=== PATIENT | male | born 1940 | race Caucasian/White ===

== ENCOUNTER 2017-04-27 09:51 | Emergency (ER) | payer MEDICARE, OTHER ==
--- NOTE | 2017-04-27 11:17 | RAD ---
PA AND LATERAL OF THE CHEST: INDICATION: Followup nasal congestion. COMPARISON: None. FINDINGS: Lungs are clear. Cardiomediastinal silhouette is within normal limits. No acute osseous abnormality is evident. IMPRESSION: No acute cardiopulmonary abnormality. POS: [facility]
== END 2017-04-27 10:37 | disposition home or self-care (01) ==
LOC: SCSER 09:51
DX: J40 Bronchitis, not specified as acute or chronic (principal); J01.90 Acute sinusitis, unspecified; E03.9 Hypothyroidism, unspecified; Z79.899 Other long term (current) drug therapy
CPT/HCPCS: 71046

== ENCOUNTER 2017-05-04 11:16 | Emergency (ER) | payer MEDICARE, OTHER ==
--- NOTE | 2017-05-04 12:20 | RAD ---
2 VIEWS CHEST: Date: 05/04/17 PROVIDED CLINICAL HISTORY: Cough. FINDINGS: Comparison with 04/27/17. Cardiac and mediastinal silhouette is within normal limits. Lungs appear clear. No pleural fluid or p neumothorax apparent. IMPRESSION: No evidence for an acute cardiopulmonary process. POS: [facility]
[2017-05-04] MEDS ORDERED: cefTRIAXone\\ROCEPHIN 1 GM VIAL IM SCH (12:30)
[2017-05-04] MEDS ORDERED: Dexamethasone 10 MG/ML VIAL IM SCH (12:30)
[2017-05-04] MEDS ORDERED: Lidocaine 1% PF 5 ML VIAL ONE (12:50)
== END 2017-05-04 13:27 | disposition home or self-care (01) ==
LOC: ERS 11:16
DX: J01.90 Acute sinusitis, unspecified (principal)
CPT/HCPCS: 71046; 96372; J0696; J1100; J2001

== ENCOUNTER 2020-03-01 13:45 | Inpatient (IN) | payer MEDICARE, OTHER ==
[2020-03-01 14:16] LABS: #Eosinphils 0.2 thou/uL (0.0-0.7); #Lymphocytes 1.3 thou/uL (1.20-3.40); #Monocytes 0.4 thou/uL (0.11-0.59); #Neutrophils 3.2 thou/uL (1.40-6.50); %Eosinophils 3.2 % (0.0-10.0); %Lymphocytes 25.8 % (21.0-51.0); %Monocytes 7.7 % (0.0-10.0); %Neutrophils 62.4 % (42.0-75.0); Hemoglobin 13.4 g/dL (14.0-18.0); Mean Corpuscular HGB CONC 32.7 g/dL (32.0-36.0); Mean Corpuscular Hemoglobin 32.7 pg (27.0-31.0); Mean Corpuscular Volume 99.9 fL (78.0-98.0); Mean Platelet Volume 9.8 fL (7.4-10.4); Platelet Count 150 thou/uL (130-400); RBC Distribution Width 11.6 % (11.5-14.5); White Blood Cell (WBC) Count 5.1 thou/uL (4.8-10.8)
--- NOTE | 2020-03-01 14:33 | RAD ---
EXAM: CHEST ONE VIEW HISTORY: Intermittent tightening and chest. Chest pain. COMPARISON: 05/04/2017. FINDINGS: The cardiac silhouette and pulmonary vasculature are within normal limits. Minimal linear scar versus atelectasis is present at the left lung base. Lungs are otherwise clear. Degenerative changes are again seen in the spine. IMPRESSION: No acute cardiopulmonary process.
[2020-03-01 14:35] LABS: ALT (SGPT) 23 U/L (8-55); AST (SGOT) 25 U/L (5-34); Alkaline Phosphatase 59 U/L (40-110); Anion Gap 11 mmol/L (10-20); BUN (Urea Nitrogen) 19 mg/dL (8.4-25.7); Bilirubin, Total 0.6 mg/dL (0.2-1.2); Calc. Creatinine Clearance 0 mL/min (70-130); Calcium 8.7 mg/dL (7.8-10.44); Carbon Dioxide 27 mmol/L (23-31); Chloride 106 mmol/L (98-107); Globulin 2.8 g/dL (2.4-3.5); Glucose 139 mg/dL (83-110); Potassium 3.8 mmol/L (3.5-5.1); Protein, Total 6.8 g/dL (5.8-8.1); Sodium 140 mmol/L (136-145)
[2020-03-01] MEDS ORDERED: Nitroglycerin 2% Ointment 1 INCH/1 GM Packet ONE (14:59)
[2020-03-01] MEDS ORDERED: Acetaminophen 325 MG TAB PO PRN (15:54)
[2020-03-01] MEDS ORDERED: Acetaminophen 650 MG Suppository PR PRN (15:54)
--- NOTE | 2020-03-01 16:10 | PDOC.HHP ---
Hospitalist HPI - History of Present Illness History of Present Illness: ADMISSION DATE: 03/01/2020 TIME OF ASSESSMENT: 1500 PRIMARY CARE PHYSICIAN: Dr. Christoph Dee CHIEF COMPLAINT: Chest pain HPI: This is a 79-year-old gentleman who presents to the emergency department as instructed by his golf ball inspector Dr. Stack due to increasing chest tightness that occurred earlier this morning. The patient was supposed to have a catheterization done tomorrow morning after having an abnormal stress test earlier this week on 02/28/2020, however given the increased chest discomfort he was recommended observation overnight prior to the procedure. At the moment he reports feeling better after having nitro paste applied in the emergency department. His states that he tends to have high tolerance for pain and does not usually state when he is in discomfort. He first began to have issues with chest tightness since the day after Jennifer prompting him to seek medical attention. He had felt lightheaded at that time as well and therefore had a heart monitor placed that demonstrated occasional episodes of tachycardia and PVCs, according to his . The tightness had eventually settled until he had the stress test which apparently triggered the discomfort. He states it tends to occur while he is resting and does not seem to be exacerbated by exertion. It is nonradiating and he is unable to rate the severity of his pain. ROS: He denies any associated nausea, vomiting, diaphoresis, or lightheadedness. He has not had any recent changes with his stools. Denies any urinary symptoms. All other systems are negative. ED COURSE: In the emergency department he underwent an EKG that demonstrated a normal sinus rhythm with a heart rate of 75. He did not have any ST changes or T wave abnormalities present. Chest x-ray was done showing no acute cardiopulmonary process. Laboratory studies demonstrated a negative troponin. He had a white cell count of 5.1, hemoglobin 13.4, hematocrit 41, platelets 150, neutrophils 62.4%. Sodium 140, potassium 3.8, BUN 19, creatinine 1.03, GFR 70. Glucose 139, LFTs normal. Patient apparently took 325 5 mg of aspirin at home and therefore did not receive any additional aspirin in the ED. PAST MEDICAL HISTORY: 1. CAD 2. Hypothyroidism 3. History of tobacco use PAST SURGICAL HISTORY: 1. Tonsillectomy SOCIAL HISTORY: Patient lives with his . He is fully independent at baseline. Drinks alcohol socially approximately 2 times a month. History of tobacco use but quit more than 10 years ago. FAMILY HISTORY: Noncontributory ALLERGIES: No known drug allergies CURRENT MEDICATIONS: 1. Levothyroxine 150 mcg p.o. daily - Exam General Appearance: NAD, awake alert General - other findings: VS: Temp 98.9, HR 88, BP 150/68, O2 sat 90% on room air, RR 17 Eye: PERRL, anicteric sclera ENT: normocephalic atraumatic, no oropharyngeal lesions, moist mucosa Neck: supple, symmetric, no lymphadenopathy Heart: RRR, no murmur, no gallops, no rubs, normal peripheral pulses Heart - other findings: no reproducible pain on exam/palpation Respiratory: CTAB, no wheezes, no rales, normal chest expansion Gastrointestinal: soft, non-tender, non-distended, normal bowel sounds, no gua rding, no rigidity Extremities: no cyanosis, no clubbing, no edema Skin: normal turgor, no lesions, no rashes Neurological: cranial nerve grossly intact, normal sensation to touch, no weakness Musculoskeletal: normal tone, normal strength, no muscle wasting Psychiatric: normal affect, normal behavior, A&O x 3 Hospitalist Results - Labs Result Diagrams: 03/01/20 14:04 03/01/20 14:04 Lab results: WBC 5.1 thou/uL (4.8-10.8) 03/01/20 14:04 Hgb 13.4 g/dL (14.0-18.0) L 03/01/20 14:04 Hct 41.0 % (42.0-52.0) L 03/01/20 14:04 MCV 99.9 fL (78.0-98.0) H 03/01/20 14:04 Plt Count 150 thou/uL (130-400) 03/01/20 14:04 Neutrophils % 62.4 % (42.0-75.0) 03/01/20 14:04 Sodium 140 mmol/L (136-145) 03/01/20 14:04 Potassium 3.8 mmol/L (3.5-5.1) 03/01/20 14:04 Chloride 106 mmol/L (98-107) 03/01/20 14:04 Carbon Dioxide 27 mmol/L (23-31) 03/01/20 14:04 BUN 19 mg/dL (8.4-25.7) 03/01/20 14:04 Creatinine 1.03 mg/dL (0.7-1.3) 03/01/20 14:04 Glucose 139 mg/dL (83-110) H 03/01/20 14:04 Calcium 8.7 mg/dL (7.8-10.44) 03/01/20 14:04 Total Bilirubin 0.6 mg/dL (0.2-1.2) 03/01/20 14:04 AST 25 U/L (5-34) 03/01/20 14:04 ALT 23 U/L (8-55) 03/01/20 14:04 Alkaline Phosphatase 59 U/L (40-110) 03/01/20 14:04 Troponin I Less than 0.010 ng/mL (< 0.028) 03/01/20 14:04 Serum Total Protein 6.8 g/dL (5.8-8.1) 03/01/20 14:04 Albumin 4.0 g/dL (3.4-4.8) 03/01/20 14:04 - Radiology Interpretation Chest x-ray Status: report reviewed by me Hospitalist H&P A/P - Problem (1) Chest pain Code(s): R07.9 - CHEST PAIN, UNSPECIFIED Status: Acute (2) Abnormal stress test Status: Acute (3) Hypothyroidism Code(s): E03.9 - HYPOTHYROIDISM, UNSPECIFIED Status: Chronic (4) Personal history of tobacco use Code(s): Z87.891 - PERSONAL HISTORY OF NICOTINE DEPENDENCE Status: Chronic - Plan Plan: Continue cardiac monitoring Cardiology consult to Dr. Holbrook Trend troponins Keep NPO until 2nd trop done if normal may resume heart healthy diet Then resume NPO status at midnight given plans for cath in the AM Monitor BP Check TSH and Mg+ GI Prophylaxis with Famotidine DVT Prophylaxis: Mechanical SCDs CODE STATUS FULL COVID testing: admission screening Case discussed with attending who agrees with plan of care.
[2020-03-01] MEDS: Famotidine 20 MG TAB PO SCH (23:04)
[2020-03-01] MEDS: Nitroglycerin 2% Ointment 1 INCH/1 GM Packet TOP SCH (23:07)
[2020-03-02 01:39] LABS: SARS-CoV-2 MS2 Positive; SARS-CoV-2 N Gene Negative; SARS-CoV-2 S Gene Negative; SARS-CoV-2 by NAA Not Detected (NotDetected); SARS-CoV-2 orf1ab Negative
[2020-03-02 04:31] LABS: #Eosinphils 0.3 thou/uL (0.0-0.7); #Lymphocytes 1.4 thou/uL (1.20-3.40); #Monocytes 0.5 thou/uL (0.11-0.59); #Neutrophils 2.4 thou/uL (1.40-6.50); %Basophils 0.8 % (0.0-1.0); %Eosinophils 6.5 % (0.0-10.0); %Lymphocytes 30.9 % (21.0-51.0); %Monocytes 10.1 % (0.0-10.0); %Neutrophils 51.7 % (42.0-75.0); Hemoglobin 12.5 g/dL (14.0-18.0); Mean Corpuscular HGB CONC 33.3 g/dL (32.0-36.0); Mean Corpuscular Hemoglobin 32.9 pg (27.0-31.0); Mean Corpuscular Volume 98.8 fL (78.0-98.0); Mean Platelet Volume 10.1 fL (7.4-10.4); Platelet Count 143 thou/uL (130-400); RBC Distribution Width 11.7 % (11.5-14.5); Red Blood Cell (RBC) Count 3.81 mill/uL (4.70-6.10); White Blood Cell (WBC) Count 4.6 thou/uL (4.8-10.8)
[2020-03-02 04:54] LABS: Anion Gap 13 mmol/L (10-20); BUN (Urea Nitrogen) 21 mg/dL (8.4-25.7); Calc. Creatinine Clearance 68 mL/min (70-130); Calcium 8.3 mg/dL (7.8-10.44); Carbon Dioxide 24 mmol/L (23-31); Cardiac Risk 3.8 (Less than 4.5); Chloride 107 mmol/L (98-107); Cholesterol 241 mg/dl (< 200 Desired); Glucose 101 mg/dL (83-110); HDL Cholesterol 63 mg/dL (>60 Neg Risk); LDL Cholesterol, Calculated 170 mg/dL; Potassium 4.1 mmol/L (3.5-5.1); Sodium 140 mmol/L (136-145); Triglycerides 42 mg/dL (Less than 150)
[2020-03-02] MEDS: Nitroglycerin 2% Ointment 1 INCH/1 GM Packet TOP SCH ×3 (06:18→22:59)
[2020-03-02] MEDS ORDERED: Aspirin 325 mg Enteric Coated Tablet PO SCH (09:00)
[2020-03-02] MEDS: Famotidine 20 MG TAB PO SCH ×2 (09:00→22:59)
--- NOTE | 2020-03-02 10:21 | PDOC.HOSPP ---
- Subjective Encounter Date: 03/02/20 Encounter Time: 10:20 Subjective: Patient reports minimal tightness in his chest, the nitro paste has just been reapplied. States he felt good overnight and slept well. Noted significant relief since starting nitro paste. Denies any lightheadedness, dizziness or headaches. Resting comfortably at present. - Objective Vital Signs & Weight: Vital Signs (12 hours) Temp Pulse Resp BP Pulse Ox 03/02/20 07:50 98.4 F 58 L 16 176/83 H 99 03/02/20 05:30 98.6 F 63 18 143/80 H 97 Weight Weight 179 lb I&O: 03/01/20 03/02/20 03/03/20 06:59 06:59 06:59 Intake Total 350 Output Total 600 Balance -250 Result Diagrams: 03/02/20 04:08 03/02/20 04:08 Hospitalist ROS - Review of Systems Constitutional: denies: fever, chills, sweats, weakness, malaise, other Respiratory: denies: cough, dry, shortness of breath, hemoptysis, SOB with excertion, pleuritic pain, sputum, wheezing, other Cardiovascular: reports: other (chest tightness has improved) Gastrointestinal: denies: nausea, vomiting, abdominal pain, diarrhea, co nstipation, melena, hematochezia, other Genitourinary: denies: dysuria, frequency, incontinence, hematuria, retention, other Musculoskeletal: denies: neck pain, shoulder pain, arm pain, back pain, hand pain, leg pain, foot pain, other Skin: denies: rash, lesions, randall, bruising, other Neurological: denies: weakness, numbness, incoordination, change in speech, confusion, seizures, other - Medication Medications: Active Medications Generic Name Dose Route Start Last Admin Trade Name Freq PRN Reason Stop Dose Admin Famotidine 20 mg 03/01/20 21:00 03/02/20 09:00 Famotidine 20 Mg Tab PO 20 mg BID GARRETT Administration Nitroglycerin 0.5 inch 03/01/20 22:00 03/02/20 06:18 Nitroglycerin 2% Ointment 1 Inch/1 Gm Packet TOP 0.5 inch Q8HR GARRETT Administration - Exam General Appearance: NAD, awake alert Eye: PERRL, anicteric sclera ENT: normocephalic atraumatic, no oropharyngeal lesions, moist mucosa Neck: supple, no lymphadenopathy Heart: RRR, no murmur, no gallops, no rubs, normal peripheral pulses Respiratory: CTAB, no wheezes, no rales, no ronchi, normal chest expansion Gastrointestinal: soft, non-tender, non-distended, normal bowel sounds Extremities: no edema Skin: normal turgor, no lesions, no rashes Neurological: cranial nerve grossly intact, normal sensation to touch, no weakness Musculoskeletal: normal tone, normal strength, no muscle wasting Psychiatric: normal affect, normal behavior, A&O x 3 Hosp A/P (1) Chest pain Code(s): R07.9 - CHEST PAIN, UNSPECIFIED Status: Acute (2) Abnormal stress test Status: Acute (3) Hypothyroidism Code(s): E03.9 - HYPOTHYROIDISM, UNSPECIFIED Status: Chronic (4) Personal history of tobacco use Code(s): Z87.891 - PERSONAL HISTORY OF NICOTINE DEPENDENCE Status: Chronic - Plan CP has improved with nitro paste Continue cardiac monitoring NPO with plans to have catheterization done this AM by Dr. Holbrook [facility] restarted DVT Prophylaxis: Mechanical SCDs GI prophylaxis: Famotidine Disposition as per Cardiology team
[2020-03-02] MEDS ORDERED: Midazolam HCl 2 mg/2 ml Vial ONE (11:46)
[2020-03-02] MEDS ORDERED: Fentanyl 100 MCG/2 ML VIAL ONE (11:48)
[2020-03-02] MEDS ORDERED: hydrALAZINE 20 MG/ML VIAL ONE (12:20)
--- NOTE | 2020-03-02 12:44 | CON ---
DATE OF CONSULTATION: 03/02/2020 REASON FOR CONSULTATION: Unstable angina. HISTORY OF PRESENT ILLNESS: Mr. Gaytan is a pleasant 79-year-old white gentleman, who comes to the hospital for angina. He saw me about 2 weeks ago for complaints of chest pain with exertion. He underwent testing including an echo and a stress. The stress showed a large inferior reversible defect and a smaller anterior reversible defect, so he was getting ready to be scheduled for an outpatient heart catheterization. However, on our tele-visit at that time, he voiced that he had been having chest pain pretty much since he had his stress test and he had ongoing chest pain on my evaluation at that time, so the recommendation was for him to go to the ER as he was probably having unstable angina. He presented yesterday with chest discomfort about a 4/10. He continues to have the chest tightness. PAST MEDICAL HISTORY: 1. Hypothyroidism. 2. Tobacco use. SURGICAL HISTORY: Tonsillectomy. SOCIAL HISTORY: Lives with the . Drinks about twice a month, socially only. Quit tobacco about 10 years ago. FAMILY HISTORY: Noncontributory. ALLERGIES: NO KNOWN DRUG ALLERGIES. OUTPATIENT MEDICATIONS: Levothyroxine 150 mcg a day. REVIEW OF SYSTEMS: A 12-point review of systems was done and was found to be negative other than stated in the history of present illness. PHYSICAL EXAMINATION: VITAL SIGNS: Temperature 98.4, pulse 58, respiratory rate 16, sat 99% on room air, blood pressure 176/83, but has been in the 130s. HEENT: Normocephalic atraumatic. NECK: Supple. LUNGS: Clear. CARDIOVASCULAR: S1 and S2. No S3 or S4. No murmurs. ABDOMEN: Soft. Positive bowel sounds. EXTREMITIES: No edema. SKIN: Warm and dry. LABORATORY DATA: Laboratory work was reviewed. CBC, CMP was reviewed. COVID PCR was negative. Chest x-ray was reviewed. ASSESSMENT AND PLAN: 1. Unstable angina. 2. Hypothyroidism. He has ongoing chest pain with ischemia on MPI. Plan on doing heart catheterization. We spoke at length of the risks and benefits of the procedure. Risks included, but not limited to stroke, [place], , bleeding, need for blood transfusion, limb loss, organ loss. He understands verbalized understanding of this and agrees to proceed. Drug-eluting stents if needed. Further recommendations per results of coronary angiogram. Job ID: [id number]
[2020-03-02] MEDS ORDERED: Sodium Chloride 0.9% 500 ML IVPB SCH (14:30)
--- NOTE | 2020-03-02 21:57 | CON ---
DATE OF CONSULTATION: HISTORY OF PRESENT ILLNESS: This is a 79-year-old gentleman followed by Dr. Christoph Dee primarily for hypercholesterolemia and hypothyroidism. He experienced some chest pressure on [place] and was seen by Dr. Holbrook. I believe he had an abnormal stress test and then experienced a more chest pressure this morning, which prompted admission to the hospital. Cardiac enzymes were negative and resting EKG was okay. He underwent cardiac catheterization, showing an 80% to 90% mid right coronary stenosis along 70% proximal PDA stenosis, about a 40% to 50% stenosis of an OM1 and about a 70% stenosis of LAD just proximal to a 2nd diagonal with rather diffuse calcific disease more proximally, but noncritical. Left ventricular systolic function is normal. PAST MEDICAL HISTORY: Includes elevated cholesterol level, treated with diet, daily took statins and then exhibited some cognitive changes such that these were stopped and then he returned to normal. He has hypothyroidism. He has no hypertension. He has not smoked in over 30 years. HOME MEDICATIONS: Included levothyroxine 25 mcg daily and he has had the addition of aspirin. SOCIAL HISTORY: He is an accountant cost and continues to work. He is , accompanied by his . REVIEW OF SYSTEMS: He has urinary frequency with nocturia x3 and decreased stream. He has no constipation or diarrhea. He has had no symptoms to suggest a TIA or stroke. He has no shortness of breath and in fact does 100 flights of stairs 3 times a week until his current issues came up. He has no claudication symptoms. PHYSICAL EXAMINATION: GENERAL: On examination, he is alert and cooperative gentleman, looking younger than his stated age. VITAL SIGNS: Height 5 feet 8 inches, 179 pounds. NECK: No carotid bruits. LUNGS: Clear to auscultation. CARDIAC: Regular rate and rhythm. No murmurs. ABDOMEN: Soft, mildly obese, nontender. No masses. EXTREMITIES: He has palpable femoral and pedal pulses bilaterally. PLAN: At this time is for bypass of his LAD, main right PDA, and possibly obtuse marginal and informed consent has been obtained. Job ID: [id number]
[2020-03-03] MEDS ORDERED: Communication Order-Pharmacy FS SCH (00:01)
[2020-03-03] MEDS: Nitroglycerin 2% Ointment 1 INCH/1 GM Packet TOP SCH (04:47)
[2020-03-03] MEDS ORDERED: Albumin 5% 500 ML ONE (06:35)
[2020-03-03] MEDS ORDERED: Fentanyl 250 MCG/5 ML VIAL ONE (06:41)
[2020-03-03] MEDS ORDERED: Midazolam HCl 5 mg/5 ml Vial ONE (06:41)
[2020-03-03] MEDS ORDERED: Dexmedetomidine 200 MCG/2 ML VIAL ONE ×2 (06:42→07:59)
[2020-03-03] MEDS ORDERED: Heparin 10,000 UNITS/1 ML VIAL 30,000 UNITS in Sodium Chloride 0.9% 1,000 ML FS SCH (07:00)
[2020-03-03] MEDS ORDERED: Ondansetron ODT 4 MG TAB ONE (07:09)
[2020-03-03] MEDS ORDERED: Midazolam HCl 2 mg/2 ml Vial ONE (07:09)
[2020-03-03] MEDS ORDERED: Nitroglycerin 50 MG/250 ML BOT 0 ML ONE (08:01)
[2020-03-03] MEDS ORDERED: Levothyroxine Sodium 25 MCG TAB PO SCH (08:30)
[2020-03-03] MEDS ORDERED: Lidocaine 1% PF 5 ML VIAL ONE (09:59)
[2020-03-03] MEDS ORDERED: Protamine Sulfate 250 MG/25 ML VIAL ONE (09:59)
[2020-03-03] MEDS ORDERED: Sodium Bicarb 50 MEQ/50 ML Abboject 8.4% SYRINGE ONE (09:59)
[2020-03-03] MEDS ORDERED: PROPOFOL 200 MG/20 ML VIAL ONE (09:59)
[2020-03-03] MEDS ORDERED: Dexamethasone 20 MG/5 ML VIAL ONE (09:59)
[2020-03-03] MEDS ORDERED: Vecuronium 10 MG VIAL ONE (09:59)
[2020-03-03] MEDS ORDERED: Papaverine 60 MG/2 ML VIAL ONE (09:59)
[2020-03-03] MEDS ORDERED: Heparin 5,000 UNITS/ML VIAL ONE (09:59)
[2020-03-03] MEDS ORDERED: Mannitol 12.5 GM/50 ML ONE (09:59)
[2020-03-03] MEDS ORDERED: Thrombin 5000 UNITS/5 ML VIAL ONE (09:59)
[2020-03-03] MEDS ORDERED: Calcium Chloride 1 GM/10 ML Abboject SYRINGE ONE (09:59)
[2020-03-03] MEDS ORDERED: Magnesium Sulfate 1 GM/2 ML VIAL ONE (09:59)
[2020-03-03] MEDS ORDERED: Norepinephrine 4 MG/4 ML VIAL ONE (09:59)
[2020-03-03] MEDS ORDERED: Glycopyrrolate 0.2 MG/ML 5 ML SYRINGE ONE (09:59)
[2020-03-03] MEDS ORDERED: Potassium Chloride 60 MEQ/30 ML VIAL ONE (09:59)
[2020-03-03] MEDS ORDERED: Heparin 30,000 units/30 ml VIAL ONE (09:59)
[2020-03-03] MEDS ORDERED: Nitroglycerin 50 MG/250 ML BOT ONE (09:59)
[2020-03-03] MEDS ORDERED: Lidocaine 2% PF 100 mg/5 ml Syringe ONE (09:59)
[2020-03-03] MEDS ORDERED: Cardioplegic Soln 1,000 ML BAG ONE (09:59)
[2020-03-03] MEDS ORDERED: Aminocaproic Acid 5 GM/20 ML VIAL ONE (09:59)
[2020-03-03] MEDS ORDERED: Bisacodyl 5 MG TAB PO PRN (10:49)
[2020-03-03] MEDS ORDERED: Guaifenesin DM 100-10/5 ML UDCUP PO PRN (10:49)
[2020-03-03] MEDS ORDERED: Norepinephrine 8 MG/0.9% NS 250 ML IVPB PRN (10:49)
[2020-03-03] MEDS ORDERED: Mag-Al 1200 mg/1200 mg/30 ML UDCUP PO PRN (10:49)
[2020-03-03] MEDS ORDERED: Potassium Chloride 20 MEQ/100 ML PREMIX BAG IVPB PRN (10:49)
[2020-03-03] MEDS ORDERED: Post-Op Insulin Drip Protocol IVPB ONE (10:49)
[2020-03-03] MEDS ORDERED: Fentanyl 100 MCG/2 ML VIAL SLOW IVP PRN (10:49)
[2020-03-03] MEDS ORDERED: niCARdipine 25 MG in Sodium Chloride 0.9% 250 ML 250 ML IVPB PRN (10:49)
[2020-03-03] MEDS ORDERED: Ondansetron PF 4 MG/2 ML Vial IVP PRN (10:49)
[2020-03-03] MEDS ORDERED: Nitroglycerin 50 MG/250 ML BOT 250 ML IVPB PRN (10:49)
[2020-03-03] MEDS ORDERED: Morphine 2 MG/ML VIAL SLOW IVP PRN (10:49)
[2020-03-03] MEDS ORDERED: hydrALAZINE 20 MG/ML VIAL SLOW IVP PRN (10:49)
[2020-03-03] MEDS ORDERED: DOPamine 400 MG/D5W 250 ML 250 ML IVPB PRN (10:49)
[2020-03-03] MEDS ORDERED: Hetastarch 6% 500 ML 500 ML IVPB PRN (10:49)
[2020-03-03] MEDS ORDERED: Promethazine HCl 25 MG/ML VIAL IM PRN (10:49)
[2020-03-03] MEDS ORDERED: Magnesium 2 GM/50 ML 2 GM in Premix Bag 1 BAG IVPB SCH (10:49)
[2020-03-03] MEDS ORDERED: HYDROcodone/Acetaminophen 5/325 mg Tablet PO PRN (10:49)
[2020-03-03] MEDS ORDERED: Bisacodyl 10 MG SUPP PR PRN (10:49)
--- NOTE | 2020-03-03 11:25 | RAD ---
RADIOGRAPH CHEST 1 VIEW: DATE: 03/03/2020 TIME: 11:07 AM HISTORY: 79-year-old male status post open heart surgery COMPARISON: 03/01/2020 FINDINGS: New sternotomy wires. New midline mediastinal drainage tube. New right-sided central venous catheter with distal tip at lower portion of SVC. Left basilar pleural drainage catheter. Left lower lobe mild to moderate atelectasis and probable small left pleural effusion, partially out side of the [id number]. No pulmonary edema or pneumothorax. IMPRESSION: Status post open heart surgery with catheters, and left lower lobe atelectasis
[2020-03-03 11:28] LABS: INR-International Normal Ratio 1.3; PTT 29.2 sec (22.9-36.1); Prothrombin Time 16.3 sec (12.0-14.7)
--- NOTE | 2020-03-03 11:33 | OP ---
DATE OF PROCEDURE: 03/02/2020 PREOPERATIVE DIAGNOSIS: Coronary artery disease. PROCEDURE PERFORMED: Coronary artery bypass graft x3 with sequential vein graft to the distal right coronary artery and to the mid PDA, ERNANDEZ to an LAD. LAD measured 1.5 to 2 mm, the right coronary artery 2 mm and diseased, and the PDA 1.5 and free of disease. STONE FABRICATOR: Dr. Dee. TRANSFUSION: None. DESCRIPTION OF PROCEDURE: After adequate anesthesia had been obtained, endovascular vein harvest of the left greater saphenous vein was performed by Dr. Dee while I performed median sternotomy, harvesting the left internal mammary artery. The patient was heparinized, mammary divided distally and passed posterior to the thymus gland. It was treated with intraluminal papaverine. The aorta was long and somewhat enlarged and was cannulated with the right atrial appendage. Cardiopulmonary bypass was begun. The vessels were inspected for grafting. The aorta was cross-clamped, and after a liter of cold blood cardioplegia, the PDA was opened and the end-to-side anastomosis completed and then the distal right coronary artery opened and [id number] anastomosis with the same vein graft was completed. ERNANDEZ to LAD was completed, following which the cross-clamp was removed and the partial occluding clamp placed and a single venous anastomosis completed on the aortic root and marked with a ring. The patient was then weaned from cardiopulmonary bypass. Cannula was removed and the aortic cannulation site secured with a Prolene suture. Mediastinal and left pleural drains were placed, following which the sternum was reapproximated with #7 interrupted wire, using vancomycin paste on the sternal edges, platelet-rich blood and platelet-poor plasma. Subcutaneous tissue and skin were closed in layers. Job ID: [id number]
[2020-03-03 11:37] LABS: Anion Gap 12 mmol/L (10-20); BUN (Urea Nitrogen) 14 mg/dL (8.4-25.7); Calc. Creatinine Clearance 82 mL/min (70-130); Calcium 7.9 mg/dL (7.8-10.44); Carbon Dioxide 21 mmol/L (23-31); Chloride 109 mmol/L (98-107); Glucose 141 mg/dL (83-110); Potassium 4.1 mmol/L (3.5-5.1); Sodium 138 mmol/L (136-145)
[2020-03-03 11:38] LABS: Hemoglobin 12.9 g/dL (14.0-18.0); Mean Corpuscular HGB CONC 32.1 g/dL (32.0-36.0); Mean Corpuscular Hemoglobin 32.4 pg (27.0-31.0); RBC Distribution Width 11.7 % (11.5-14.5); Red Blood Cell (RBC) Count 3.98 mill/uL (4.70-6.10); White Blood Cell (WBC) Count 11.3 thou/uL (4.8-10.8)
[2020-03-03] MEDS: Fentanyl 100 MCG/2 ML VIAL SLOW IVP PRN ×2 (11:45→16:18)
[2020-03-03 11:59] LABS: #Eosinphils 0.1 thou/uL (0.0-0.7); #Lymphocytes 0.9 thou/uL (1.20-3.40); #Monocytes 0.3 thou/uL (0.11-0.59); %Basophils 0.4 % (0.0-1.0); %Eosinophils 1.3 % (0.0-10.0); %Lymphocytes 7.6 % (21.0-51.0); %Monocytes 2.3 % (0.0-10.0); %Neutrophils 88.4 % (42.0-75.0); Band 14 % (5-11); Lymphocytes 5 % (21-51); MDiff Complete? YES; Mean Platelet Volume 10.1 fL (7.4-10.4); Monocytes 3 % (0-10); Neutrophil 73 % (42-75); Platelet Count 100 thou/uL (130-400); Platelet Morphology Comment Appears Decreased; RBC Morphology Normal; Reactive Lymphocytes 5 % (0-10)
[2020-03-03] MEDS ORDERED: Dextrose 5% in Water 1,000 ML IV PRN (12:00)
[2020-03-03] MEDS ORDERED: Dextrose 50% Abboject 50 ML SYRINGE SLOW IVP PRN (12:00)
[2020-03-03] MEDS ORDERED: HUMULIN R 100 UNITS in Sodium Chloride 0.9% 100 ML IVPB SCH (12:00)
[2020-03-03] MEDS: CEFAZOLIN 2 GM in Premix Bag 1 BAG IVPB SCH ×2 (12:22→21:03)
[2020-03-03] MEDS: Ketorolac Tromethamine 30 MG/ML VIAL IVP SCH ×3 (12:22→23:10)
[2020-03-03] MEDS: Lactated Ringer's 1,000 ML IV SCH (12:24)
[2020-03-03] MEDS: Insulin Regular 300 UNITS/3 ML VIAL SC PRN ×3 (12:25→21:54)
--- NOTE | 2020-03-03 12:59 | PDOC.CPN ---
- Subjective Date: 03/03/20 Time: 12:58 Interval history: He had his CABG earlier today. Extubated now. - Review of Systems General: denies: fever/chills, weight/appetite/sleep changes, night sweats, fatigue Respiratory: denies: cough, congestion, shortness of breath, exercise intolerance Cardiovascular: reports: chest pain. denies: palpitation, edema, paroxysmal nocturnal dyspnea, orthopnea Gastrointestinal: denies: nausea, vomiting, diarrhea, constipation, abd pain, GI bleeding Musculoskeletal: reports: pain. denies: tenderness, stiffness, swelling, arthritis/arthralgias Neurological: denies: numbness, syncope, seizure, weakness - Objective Allergies/Adverse Reactions: Allergies Allergy/AdvReac Type Severity Reaction Status Date / Time No Known Allergies Allergy Verified 03/02/20 00:23 Visit Medications: Current Medications Acetaminophen (Acetaminophen 325 Mg Tab) 650 mg PO Q6H PRN PRN Reason: Headache/Fever Or Mild Pain Hydrocodone Bitart/Acetaminophen (Hydrocodone/Acetaminophen 5/325 Mg Tablet) 1 tab PO Q4H PRN PRN Reason: Moderate Pain (4-6) Hydrocodone Bitart/Acetaminophen (Hydrocodone/Acetaminophen 5/325 Mg Tablet) 2 tab PO Q4H PRN PRN Reason: Severe Pain (7-10) Al Hydroxide/Mg Hydroxide (Mag-Al 1200 Mg/1200 Mg/30 Ml Udcup) 30 ml PO Q4H PRN PRN Reason: Indigestion Albumin Human (Albumin 5% 12.5 Gm/250 Ml Bot) 12.5 gm IVPB Q6H PRN PRN Reason: To Maintain SBP> 90 mmHG Stop: 03/04/20 10:50 Albumin Human (Albumin 5% 12.5 Gm/250 Ml Bot) 25 gm IVPB Q6H PRN PRN Reason: To Maintain SBP > 90 mmHG Stop: 03/04/20 10:50 Albuterol/Ipratropium (Ipratropium/Albuterol Sulfate 3 Ml Neb) 3 ml NEB [id number] PRN PRN Reason: SOB Aspirin (Aspirin Chewable 81 Mg Tab) 81 mg PO DAILY GARRETT Bisacodyl (Bisacodyl 5 Mg Tab) 10 mg PO Q12H PRN PRN Reason: Constipation Bisacodyl (Bisacodyl 10 Mg Supp) 10 mg WA Q12H PRN PRN Reason: Constipation Dextrose/Water (Dextrose 50% Abboject 50 Ml Syringe) 25 gm SLOW IVP PRN PRN PRN Reason: PER HYPOGLYCEMIC PROTOCOL Famotidine (Famotidine/Pf 20 Mg/2ml Vial) 20 mg SLOW IVP Q12HR GARRETT Fentanyl (Fentanyl 100 Mcg/2 Ml Vial) 25 mcg SLOW IVP Q2H PRN PRN Reason: Moderate Pain (4-6) Stop: 03/05/20 10:13 Fentanyl (Fentanyl 100 Mcg/2 Ml Vial) 50 mcg SLOW IVP Q2H PRN PRN Reason: Severe Pain (7-10) Stop: 03/05/20 10:13 Last Admin: 03/03/20 11:45 Dose: 50 mcg Documented by: Glucagon (Glucagon 1 Mg/Ml Vial) 1 mg SC PRN PRN PRN Reason: PER HYPOGLYCEMIC PROTOCOL Guaifenesin/Dextromethorphan (Guaifenesin Dm 100-10/5 Ml Udcup) 15 ml PO Q4H PRN PRN Reason: Cough Hydralazine HCl (Hydralazine 20 Mg/Ml Vial) 10 mg SLOW IVP Q6H PRN PRN Reason: To Maintain SBP< 140mmHG Hetastarch/Sodium Chloride (Hespan) 500 mls @ 0 mls/hr IVPB PRN PRN PRN Reason: To Maintain SBP > 90mmHg Stop: 03/04/20 10:13 Nitroglycerin/Dextrose (Nitroglycerin 50 Mg/250 Ml Bot) 250 mls @ 0 mls/hr IVPB PRN PRN; Protocol PRN Reason: To Maintain SBP< 140mmHG Dopamine HCl/Dextrose (Dopamine 400 Mg/D5w 250 Ml) 250 mls @ 0 mls/hr IVPB PRN PRN; Protocol PRN Reason: To maintain SBP > 90 mmHG Nicardipine HCl 25 mg/ Sodium (Chloride) 260 mls @ 0 mls/hr IVPB INF PRN; Protocol PRN Reason: To Maintain SBP< 140mmHG Cefazolin Sodium/Dextrose 2 gm (/ Device) 50 mls @ 100 mls/hr IVPB Q8HR [facility] Stop: 03/04/20 06:29 Last Admin: 03/03/20 12:22 Dose: 50 mls Documented by: Magnesium Sulfate 2 gm/ Device 50 mls @ 50 mls/hr IVPB NOW [facility] Stop: 03/03/20 13:00 Last Admin: 03/03/20 12:21 Dose: 50 mls Documented by: Norepinephrine Bitartrate (Levophed) 250 mls @ 0 mls/hr IVPB PRN PRN; Protocol PRN Reason: To maintain SBP > 90 mmHG Lactated Ringer's (Lactated Ringer's) 1,000 mls @ 75 mls/hr IV .[id number] [facility] Last Admin: 03/03/20 12:24 Dose: 1,000 mls Documented by: Insulin Human Regular 100 (units/ Sodium Chloride) 101 mls @ 0 mls/hr IVPB INF GARERTT; Protocol Dextrose/Water (D5w) 1,000 mls @ 0 mls/hr IV INF PRN PRN Reason: PRN HYPOGLYCEMIC PROTOCOL Insulin Glargine (Lantus 100 Units/Ml Vial) 0 units SC ONE PRN PRN Reason: POST OPEN HEART ORDERS Stop: 03/04/20 17:00 Insulin Human Regular (Insulin Regular 300 Units/3 Ml Vial) 0 units SC Q4H PRN; Protocol PRN Reason: POST CABG SLIDING SCALE Last Admin: 03/03/20 12:25 Dose: 2 unit Documented by: Ketorolac Tromethamine (Ketorolac Tromethamine 30 Mg/Ml Vial) 15 mg IVP Q6HR [facility] Stop: 03/06/20 12:01 Last Admin: 03/03/20 12:22 Dose: 15 mg Documented by: Morphine Sulfate (Morphine 2 Mg/Ml Vial) 2 mg SLOW IVP Q15MIN PRN PRN Reason: Severe Pain (7-10) Ondansetron HCl (Ondansetron Pf 4 Mg/2 Ml Vial) 4 mg IVP Q6H PRN PRN Reason: Nausea/Vomiting Polyethylene Glycol (Polyethylene Glycol 3350 17 Gm Packet) 17 gm PO DAILY [facility] Potassium Chloride (Potassium Chloride 20 Meq/100 Ml Premix Bag) 20 meq IVPB PRN PRN PRN Reason: K level </= 4.0 Promethazine HCl (Promethazine Hcl 25 Mg/Ml Vial) 6.25 mg IM Q4H PRN PRN Reason: Nausea/Vomiting Vital Signs & Weight: Vital Signs Temp Pulse Resp BP Pulse Ox 03/03/20 04:00 98.4 F 58 L 16 140/76 96 Weight 179 lb - Physical Exam General: no apparent distress HEENT: mucus membranes moist Neck: supple neck Cardiac: regular rate and rhythm Lungs: clear to auscultation Neuro: grossly intact Abdomen: active bowel sounds Extremities: 1+ LE edema Skin: clear Musculoskeletal: normal range of motion - Labs Result Diagrams: 03/03/20 11:03 03/03/20 11:03 Troponin/CKMB Troponin I 0.013 ng/mL (< 0.028) 03/01/20 20:11 - Telemetry Sinus rhythms and dysrhythmias: sinus rhythm - Assessment/Plan Assessment/Plan: 1. Unstable angina 2. Multivesse CAD 3. S/P CABG x 3 ERNANDEZ to LAD, SVG to RCA sequential to PDA. PLAN: - Continue post operative care. - ASA/Statin fo rlife. - BB and ACEI once BP allow.
[2020-03-03] MEDS: HYDROcodone/Acetaminophen 5/325 mg Tablet PO PRN ×2 (13:21→23:10)
--- NOTE | 2020-03-03 13:38 | PDOC.HOSPP ---
- Subjective Encounter Date: 03/03/20 Encounter Time: 11:30 Subjective: Patient seen and examined. No new complaints. No overnight events. S/p CABG, extubated now. - Objective Vital Signs & Weight: Vital Signs (12 hours) Temp Pulse Resp BP Pulse Ox 03/03/20 04:00 98.4 F 58 L 16 140/76 96 Weight Weight 179 lb I&O: 03/02/20 03/03/20 03/04/20 06:59 06:59 06:59 Intake Total 350 1700 Output Total 600 2550 Balance -250 -850 Result Diagrams: 03/03/20 11:03 03/03/20 11:03 Additional Labs: Accuchecks 03/03/20 11:10 POC Glucose 122 H Hospitalist ROS - Review of Systems ROS unobtainable: due to endotracheal tube All other systems reviewed; all pertinent +/- noted in HPI/Subj - Medication Medications: Active Medications Generic Name Dose Route Start Last Admin Trade Name Freq PRN Reason Stop Dose Admin Hydrocodone Bitart/Acetaminophen 1 tab 03/03/20 10:49 03/03/20 13:21 Hydrocodone/Acetaminophen 5/325 Mg Tablet PO 1 tab Q4H PRN Administration Moderate Pain (4-6) Fentanyl 50 mcg 03/03/20 10:49 03/03/20 11:45 Fentanyl 100 Mcg/2 Ml Vial SLOW IVP 03/05/20 10:13 50 mcg Q2H PRN Administration Severe Pain (7-10) Cefazolin Sodium/Dextrose 2 gm 50 mls @ 100 mls/hr 03/03/20 14:00 03/03/20 12:22 / Device IVPB 03/04/20 06:29 50 mls Q8HR GARRETT Administration Lactated Ringer's 1,000 mls @ 75 mls/hr 03/03/20 10:49 03/03/20 12:24 Lactated Ringer's IV 1,000 mls .[id number] GARRETT Administration Insulin Human Regular 0 units 03/03/20 12:00 03/03/20 12:25 Insulin Regular 300 Units/3 Ml Vial SC 2 unit Q4H PRN Administration POST CABG SLIDING SCALE Protocol Ketorolac Tromethamine 15 mg 03/03/20 12:00 03/03/20 12:22 Ketorolac Tromethamine 30 Mg/Ml Vial IVP 03/06/20 12:01 15 mg Q6HR GARRETT Administration - Exam General Appearance: NAD. negative: ill appearing General - other findings: intubated s/p CABG Heart: RRR, no murmur, no gallops, no rubs Respiratory: no wheezes, no tachypnea Respiratory - other findings: intubated Gastrointestinal: soft, non-tender, no guarding, no rigidity. negative: normal bowel sounds (hypoactive, distant difficult to assess over ventilator) Extremities: 1+ LE edema Psychiatric: negative: A&O x 3 Psychiatric - other findings: intubated s/p CABG Hosp A/P (1) Status post aorto-coronary artery bypass graft Code(s): Z95.1 - PRESENCE OF AORTOCORONARY BYPASS GRAFT Status: Acute (2) Chest pain Code(s): R07.9 - CHEST PAIN, UNSPECIFIED Status: Acute (3) Unstable angina Status: Acute (4) Abnormal stress test Status: Acute (5) Hypothyroidism Code(s): E03.9 - HYPOTHYROIDISM, UNSPECIFIED Status: Chronic (6) Personal history of tobacco use Code(s): Z87.891 - PERSONAL HISTORY OF NICOTINE DEPENDENCE Status: Chronic - Plan POD #0, CABG x3 with ERNANDEZ. Continue postop care per CV surgery. Cardiology recs appreciated ASA and statin for life: BB and MELINDA-I when BP tolerates.
[2020-03-03 16:21] LABS: Hemoglobin 13.3 g/dL (14.0-18.0)
[2020-03-03 16:33] LABS: Potassium 4.1 mmol/L (3.5-5.1)
[2020-03-03 19:16] LABS: Hemoglobin 13.6 g/dL (14.0-18.0)
[2020-03-03 20:18] LABS: Potassium 4.8 mmol/L (3.5-5.1)
[2020-03-03] MEDS: Famotidine/PF 20 mg/2ml Vial SLOW IVP SCH (21:02)
[2020-03-04] MEDS: Lactated Ringer's 1,000 ML IV SCH (02:32)
[2020-03-04 04:42] LABS: #Lymphocytes 0.6 thou/uL (1.20-3.40); #Monocytes 0.8 thou/uL (0.11-0.59); #Neutrophils 9.2 thou/uL (1.40-6.50); %Basophils 0.4 % (0.0-1.0); %Eosinophils 0.1 % (0.0-10.0); %Monocytes 7.6 % (0.0-10.0); %Neutrophils 85.9 % (42.0-75.0); Hemoglobin 11.4 g/dL (14.0-18.0); Mean Corpuscular HGB CONC 33.7 g/dL (32.0-36.0); Mean Corpuscular Hemoglobin 33.4 pg (27.0-31.0); Mean Corpuscular Volume 99.2 fL (78.0-98.0); Mean Platelet Volume 10.9 fL (7.4-10.4); Platelet Count 118 thou/uL (130-400); RBC Distribution Width 11.8 % (11.5-14.5); Red Blood Cell (RBC) Count 3.42 mill/uL (4.70-6.10); White Blood Cell (WBC) Count 10.7 thou/uL (4.8-10.8)
[2020-03-04 04:57] LABS: Anion Gap 12 mmol/L (10-20); BUN (Urea Nitrogen) 19 mg/dL (8.4-25.7); Calc. Creatinine Clearance 64 mL/min (70-130); Calcium 7.8 mg/dL (7.8-10.44); Carbon Dioxide 22 mmol/L (23-31); Chloride 107 mmol/L (98-107); Glucose 113 mg/dL (83-110); Potassium 4.1 mmol/L (3.5-5.1); Sodium 137 mmol/L (136-145)
[2020-03-04] MEDS: Ketorolac Tromethamine 30 MG/ML VIAL IVP SCH ×3 (05:08→18:46)
[2020-03-04] MEDS: CEFAZOLIN 2 GM in Premix Bag 1 BAG IVPB SCH (05:08)
[2020-03-04] MEDS: Acetaminophen 325 MG TAB PO PRN ×2 (05:09→12:44)
[2020-03-04 05:56] VITALS: BMI 27.5
[2020-03-04] MEDS ORDERED: Levothyroxine Sodium 25 MCG TAB PO SCH (06:00)
--- NOTE | 2020-03-04 08:32 | PDOC.HOSPP ---
- Subjective Encounter Date: 03/04/20 Encounter Time: 08:25 Subjective: Patient seen and examined. No new complaints. No overnight events. Sitting in bedside chair, chest tubes draining. Denies any chest pain or SOB. Spouse reports that he had rough night secondary to narcotics, apparently he becomes mentally altered and she had to come up to the hospital to calm him down. Prefers tylenol and toradol for pain control. Patient says he feels good today. - Objective Vital Signs & Weight: Vital Signs (12 hours) Temp Pulse Ox 03/04/20 07:10 98 03/04/20 04:00 99.6 F 03/04/20 00:00 99.2 F 100 Weight Weight 181 lb 7.047 oz Most Recent Monitor Data Heart Rate from ECG 79 NIBP 88/55 NIBP BP-Mean 66 Respiration from ECG 16 SpO2 90 I&O: 03/03/20 03/04/20 03/05/20 06:59 06:59 06:59 Intake Total 1700 1852 Output Total 2550 3225 Balance -850 -0383 Result Diagrams: 03/04/20 04:00 03/04/20 04:00 Additional Labs: Accuchecks 03/04/20 03/04/20 03/03/20 08:12 00:06 20:30 POC Glucose 117 H 136 H 131 H 03/03/20 03/03/20 03/03/20 18:16 15:13 11:10 POC Glucose 114 H 140 H 122 H Hospitalist ROS - Review of Systems Constitutional: denies: fever, chills Respiratory: denies: cough, shortness of breath, hemoptysis Cardiovascular: denies: chest pain, palpitations, light headedness Gastrointestinal: denies: nausea, vomiting, abdominal pain, constipation, melena, hematochezia Neurological: denies: weakness - Medication Medications: Active Medications Generic Name Dose Route Start Last Admin Trade Name Freq PRN Reason Stop Dose Admin Acetaminophen 650 mg 03/03/20 10:49 03/04/20 05:09 Acetaminophen 325 Mg Tab PO 650 mg Q6H PRN Administration Headache/Fever Or Mild Pain Hydrocodone Bitart/Acetaminophen 1 tab 03/03/20 10:49 03/03/20 23:10 Hydrocodone/Acetaminophen 5/325 Mg Tablet PO 1 tab Q4H PRN Administration Moderate Pain (4-6) Hydrocodone Bitart/Acetaminophen 2 tab 03/03/20 10:49 03/03/20 17:43 Hydrocodone/Acetaminophen 5/325 Mg Tablet PO 2 tab Q4H PRN Administration Severe Pain (7-10) Albumin Human 12.5 gm 03/03/20 10:49 03/04/20 02:23 Albumin 5% 12.5 Gm/250 Ml Bot IVPB 03/04/20 10:50 12.5 gm Q6H PRN Administration To Maintain SBP> 90 mmHG Famotidine 20 mg 03/03/20 21:00 03/03/20 21:02 Famotidine/Pf 20 Mg/2ml Vial SLOW IVP 20 mg Q12HR GARRETT Administration Fentanyl 25 mcg 03/03/20 10:49 03/04/20 03:09 Fentanyl 100 Mcg/2 Ml Vial SLOW IVP 03/05/20 10:13 25 mcg Q2H PRN Administration Moderate Pain (4-6) Fentanyl 50 mcg 03/03/20 10:49 03/03/20 16:18 Fentanyl 100 Mcg/2 Ml Vial SLOW IVP 03/05/20 10:13 50 mcg Q2H PRN Administration Severe Pain (7-10) Lactated Ringer's 1,000 mls @ 75 mls/hr 03/03/20 10:49 03/04/20 02:32 Lactated Ringer's IV Not Given .[id number] [facility] Insulin Human Regular 0 units 03/03/20 12:00 03/03/20 21:54 Insulin Regular 300 Units/3 Ml Vial SC 2 unit Q4H PRN Administration POST CABG SLIDING SCALE Protocol Ketorolac Tromethamine 15 mg 03/03/20 12:00 03/04/20 05:08 Ketorolac Tromethamine 30 Mg/Ml Vial IVP 03/06/20 12:01 15 mg Q6HR GARRETT Administration - Exam General Appearance: NAD, awake alert. negative: ill appearing Eye: anicteric sclera Heart: RRR, no murmur, no gallops, no rubs, normal peripheral pulses Respiratory: CTAB, no wheezes, no rales, no ronchi, normal chest expansion Respiratory - other findings: Chest/mediastinal tube in place and set to suction Gastrointestinal: soft, non-tender, no guarding, no rigidity. negative: normal bowel sounds (hypoactive) Extremities: no edema Extremities - other findings: TEDs in place Skin: no rashes Skin - other findings: graft sites to LLE C/D/I Neurological: no focal deficits Psychiatric: normal affect, A&O x 3 Hosp A/P (1) Status post aorto-coronary artery bypass graft Code(s): Z95.1 - PRESENCE OF AORTOCORONARY BYPASS GRAFT Status: Acute (2) Chest pain Code(s): R07.9 - CHEST PAIN, UNSPECIFIED Status: Acute (3) Unstable angina Status: Acute (4) Abnormal stress test Status: Acute (5) Hypothyroidism Code(s): E03.9 - HYPOTHYROIDISM, UNSPECIFIED Status: Chronic (6) Personal history of tobacco use Code(s): Z87.891 - PERSONAL HISTORY OF NICOTINE DEPENDENCE Status: Chronic - Plan POD #1, CABG x3 with ERNANDEZ by Dr. Friend Continue postop care per CV surgery. Cardiology following - Dr. Holbrook ASA and statin for life: BB and MELINDA-I when BP tolerates. Possible down grade to telemetry unit this afternoon.
[2020-03-04] MEDS: Famotidine/PF 20 mg/2ml Vial SLOW IVP SCH (09:43)
[2020-03-04] MEDS: Polyethylene Glycol 3350 17 GM Packet PO SCH (09:44)
[2020-03-04] MEDS: Aspirin Chewable 81 MG TAB PO SCH (09:44)
--- NOTE | 2020-03-04 09:58 | RAD ---
RADIOGRAPH CHEST 1 VIEW: DATE: 03/04/2020 TIME: 5:41 AM HISTORY: 79-year-old male status post open heart surgery COMPARISON: 03/03/2020 FINDINGS: sternotomy wires. Midline mediastinal drainage tube. Right-sided central venous catheter with distal tip at lower portion of SVC. Left basilar pleural drainage catheter. Left lower lobe mild to moderate atelectasis and probable small left pleural effusion. No pulmonary edema or pneumothorax No interval change. IMPRESSION: No interval change
[2020-03-04] MEDS ORDERED: Milk Of Magnesia 30 ML UDCUP PO PRN (13:25)
[2020-03-04] MEDS ORDERED: Zolpidem Tartrate 5 MG TAB PO PRN (13:25)
[2020-03-04] MEDS ORDERED: Nitroglycerin 0.4 MG TAB (25 Tab Bottle) SL PRN (13:25)
[2020-03-04] MEDS ORDERED: Mag-Al 1200 mg/1200 mg/30 ML UDCUP PO PRN (13:25)
[2020-03-04] MEDS ORDERED: Bisacodyl 10 MG SUPP PR PRN (13:25)
[2020-03-04] MEDS ORDERED: Mineral Oil ENEMA PR PRN (13:25)
[2020-03-04] MEDS ORDERED: Bisacodyl 5 MG TAB PO PRN (13:25)
[2020-03-04] MEDS ORDERED: diphenhydrAMINE 25 MG CAP PO PRN (13:25)
[2020-03-04] MEDS ORDERED: Amiodarone 150 MG in Dextrose 5% in Water 100 ML IVPB SCH (14:15)
[2020-03-04 14:18] LABS: Thyroid Stimulating Hormone 1.1844 uIU/mL (0.35-4.94)
[2020-03-04] MEDS: Amiodarone 450 MG in Dextrose 5% in Water 250 ML IVPB SCH (14:30)
[2020-03-04] MEDS ORDERED: Sodium Chloride 0.9% 500 ML IVPB SCH ×2 (17:30→21:00)
[2020-03-04] MEDS: Atorvastatin Calcium 20 MG TAB PO SCH (20:59)
[2020-03-05] MEDS: Ketorolac Tromethamine 30 MG/ML VIAL IVP SCH ×4 (00:03→17:52)
[2020-03-05] MEDS: Amiodarone 450 MG in Dextrose 5% in Water 250 ML IVPB SCH ×2 (02:05→16:40)
[2020-03-05] MEDS: Levothyroxine Sodium 25 MCG TAB PO SCH (06:25)
[2020-03-05] MEDS ORDERED: Thyroid 30 MG TAB PO SCH (09:00)
[2020-03-05] MEDS: Aspirin Chewable 81 MG TAB PO SCH (10:56)
[2020-03-05] MEDS: Polyethylene Glycol 3350 17 GM Packet PO SCH (10:56)
[2020-03-05] MEDS: Atorvastatin Calcium 20 MG TAB PO SCH (21:17)
[2020-03-06] MEDS: Ketorolac Tromethamine 30 MG/ML VIAL IVP SCH ×2 (00:58→06:17)
[2020-03-06] MEDS: Thyroid 30 MG TAB PO SCH (06:17)
[2020-03-06] MEDS: Levothyroxine Sodium 25 MCG TAB PO SCH (06:17)
[2020-03-06] MEDS: Polyethylene Glycol 3350 17 GM Packet PO SCH (08:41)
[2020-03-06] MEDS: Aspirin Chewable 81 MG TAB PO SCH (08:41)
[2020-03-06] MEDS: Amiodarone 450 MG in Dextrose 5% in Water 250 ML IVPB SCH (08:41)
[2020-03-06] MEDS ORDERED: Furosemide 40 MG TAB PO SCH (09:00)
[2020-03-06] MEDS ORDERED: Tamsulosin HCl 0.4 MG CAP PO SCH (09:30)
--- NOTE | 2020-03-06 09:43 | PRG ---
DATE OF SERVICE: 03/06/2020 SUBJECTIVE: The patient is now postoperative day #3 following coronary artery bypass grafting to the right coronary artery, right PDA, and LAD. Over the weekend, he had atrial tachycardia with some pauses and again had a pause during the night last night in sinus rhythm. Otherwise, he is feeling well and he is up in the chair this morning. His Stevenson remains in place and he did have symptoms of prostatic enlargement prior to surgical intervention. PLAN: At this time would be to switch him over to p.o. amiodarone, obtain evaluation by EP in regard to possible need for a pacemaker, and continue with rehab now. I have gone over the situation with the patient and . Job ID: [id number]
[2020-03-06] MEDS ORDERED: Amiodarone 200 MG TAB PO SCH (10:15)
--- NOTE | 2020-03-06 14:15 | PDOC.CPN ---
- Subjective Date: 03/06/20 Time: 14:11 Interval history: He had runs of afib over the weekend. Was started on amiodarone and had converting pauses and has been in sinus since. He could feel his heart in aifb but did not feel any of the pauses. Passing gas now but no BM and feels bloated. Noticed an itch and mil mackenzie non his back and states it looks the same as his shingles in the past but instead of lower thoracic dermatome its a mid thoracic dermatome. - Review of Systems General: denies: fever/chills, weight/appetite/sleep changes, night sweats, fatigue Respiratory: denies: cough, congestion, shortness of breath, exercise intolerance Cardiovascular: denies: chest pain, palpitation, edema, paroxysmal nocturnal dyspnea, orthopnea Gastrointestinal: reports: constipation. denies: nausea, vomiting, diarrhea, abd pain, GI bleeding Musculoskeletal: reports: pain. denies: tenderness, stiffness, swelling, arthritis/arthralgias Neurological: denies: numbness, syncope, seizure, weakness - Objective Allergies/Adverse Reactions: Allergies Allergy/AdvReac Type Severity Reaction Status Date / Time No Known Allergies Allergy Verified 03/02/20 00:23 Visit Medications: Current Medications Acetaminophen (Acetaminophen 325 Mg Tab) 650 mg PO Q6H PRN PRN Reason: Headache/Fever Or Mild Pain Last Admin: 03/04/20 12:44 Dose: 650 mg Documented by: Al Hydroxide/Mg Hydroxide (Mag-Al 1200 Mg/1200 Mg/30 Ml Udcup) 30 ml PO Q4H PRN PRN Reason: Indigestion Albuterol/Ipratropium (Ipratropium/Albuterol Sulfate 3 Ml Neb) 3 ml NEB [id number] PRN PRN Reason: SOB Amiodarone HCl (Amiodarone 200 Mg Tab) 400 mg PO BID [facility] Aspirin (Aspirin Chewable 81 Mg Tab) 81 mg PO DAILY [facility] Last Admin: 03/06/20 08:41 Dose: 81 mg Documented by: Atorvastatin Calcium (Atorvastatin Calcium 20 Mg Tab) 20 mg PO HS [facility] Last Admin: 03/05/20 21:17 Dose: 20 mg Documented by: Bisacodyl (Bisacodyl 5 Mg Tab) 10 mg PO Q12H PRN PRN Reason: Constipation Bisacodyl (Bisacodyl 10 Mg Supp) 10 mg MO Q12H PRN PRN Reason: Constipation Diphenhydramine HCl (Diphenhydramine 25 Mg Cap) 25 mg PO Q6H PRN PRN Reason: Itching & Insomnia or Vinh Stu Finasteride (Finasteride 5 Mg Tab) 5 mg PO DAILY [facility] Furosemide (Furosemide 40 Mg Tab) 40 mg PO DAILY-AC [facility] Guaifenesin/Dextromethorphan (Guaifenesin Dm 100-10/5 Ml Udcup) 15 ml PO Q4H PRN PRN Reason: Cough Hydralazine HCl (Hydralazine 20 Mg/Ml Vial) 10 mg SLOW IVP Q6H PRN PRN Reason: To Maintain SBP< 140mmHG Levothyroxine Sodium (Levothyroxine Sodium 25 Mcg Tab) 25 mcg PO SuMoWeFrSa@0600 [facility] Last Admin: 03/06/20 06:17 Dose: 25 mcg Documented by: Levothyroxine Sodium (Levothyroxine Sodium 25 Mcg Tab) 12.5 mcg PO TTH@0600 [facility] Magnesium Hydroxide (Milk Of Magnesia 30 Ml Udcup) 30 ml PO Q12H PRN PRN Reason: Constipation Mineral Oil (Mineral Oil Enema) 133 ml MO DAILYPRN PRN PRN Reason: Constipation Nitroglycerin (Nitroglycerin 0.4 Mg Tab (25 Tab Bottle)) 0.4 mg SL Q5MIN PRN PRN Reason: Chest Pain Ondansetron HCl (Ondansetron Pf 4 Mg/2 Ml Vial) 4 mg IVP Q6H PRN PRN Reason: Nausea/Vomiting Polyethylene Glycol (Polyethylene Glycol 3350 17 Gm Packet) 17 gm PO DAILY [facility] Last Admin: 03/06/20 08:41 Dose: 17 gm Documented by: Potassium Chloride (Potassium Chloride 20 Meq/100 Ml Premix Bag) 20 meq IVPB PRN PRN PRN Reason: K level </= 4.0 Potassium Chloride (Potassium Chloride 10 Meq Tab) 10 meq PO QAM[facility] Sodium Chloride (Flush - Normal Saline 10 Ml Syringe) 10 ml IVF PRN PRN PRN Reason: Saline Flush Tamsulosin HCl (Tamsulosin Hcl 0.4 Mg Cap) 0.4 mg PO DAILY [facility] Thyroid (Thyroid 30 Mg Tab) 15 mg PO 0600 [facility] Last Admin: 03/06/20 06:17 Dose: 15 mg Documented by: Zolpidem Tartrate (Zolpidem Tartrate 5 Mg Tab) 5 mg PO HSPRN PRN PRN Reason: Insomnia Vital Signs & Weight: Vital Signs Temp Pulse Pulse BP BP Pulse Ox Pulse Ox 03/06/20 11:00 98.9 F 03/06/20 09:20 68 70 140/92 H 155/73 H 100 03/06/20 07:24 98 03/06/20 07:00 99.5 F 03/06/20 04:00 99.4 F Pulse Ox 03/06/20 11:00 03/06/20 09:20 100 03/06/20 07:24 03/06/20 07:00 03/06/20 04:00 Weight 169 lb 8.568 oz - Physical Exam General: alert & oriented x3 HEENT: mucus membranes moist Neck: supple neck Cardiac: regular rate and rhythm Lungs: normal breath sounds Neuro: grossly intact Abdomen: active bowel sounds Extremities: no edema Skin: other (Erythema and pain on the left T6 or T7 dermatome distribution.) - Labs Result Diagrams: 03/04/20 04:00 03/04/20 04:00 Troponin/CKMB Troponin I 0.013 ng/mL (< 0.028) 03/01/20 20:11 - Telemetry Sinus rhythms and dysrhythmias: sinus rhythm Supraventricular conduction: atrial fibrillation - Assessment/Plan Assessment/Plan: 1. Unstable angina 2. Multivesse CAD 3. S/P CABG x 3 ERNANDEZ to LAD, SVG to RCA sequential to PDA. 4. Post op afib 5. Sinus pause before conversion to sinus. PLAN: - ASA/Statin fo rlife. - BB and ACEI once BP allow. - EP consultation. - Further anti arrhythmics per EP.
--- NOTE | 2020-03-06 14:42 | PDOC.HOSPP ---
- Subjective Encounter Date: 03/05/20 Encounter Time: 11:20 Subjective: pt up in bed no complains - Objective Vital Signs & Weight: Vital Signs (12 hours) Temp Pulse Pulse BP BP Pulse Ox Pulse Ox 03/06/20 13:20 73 68 170/83 H 141/81 H 92 L 03/06/20 11:00 98.9 F 03/06/20 09:20 68 70 140/92 H 155/73 H 100 03/06/20 07:24 98 03/06/20 07:00 99.5 F 03/06/20 04:00 99.4 F Pulse Ox 03/06/20 13:20 94 L 03/06/20 11:00 03/06/20 09:20 100 03/06/20 07:24 03/06/20 07:00 03/06/20 04:00 Weight Weight 169 lb 8.568 oz Most Recent Monitor Data Heart Rate from ECG 67 NIBP 124/99 NIBP BP-Mean 107 Respiration from ECG 18 SpO2 89 I&O: 03/05/20 03/06/20 03/07/20 06:59 06:59 06:59 Intake Total 2411.4 1146 480 Output Total 1469 1258 695 Balance 942.4 -112 -215 Result Diagrams: 03/04/20 04:00 03/04/20 04:00 Hospitalist ROS - Review of Systems Cardiovascular: denies: chest pain, palpitations, orthopnea, paroxysmal noc. dyspnea, edema, light headedness, other Gastrointestinal: denies: nausea, vomiting, abdominal pain, diarrhea, constipation, melena, hematochezia, other Genitourinary: denies: dysuria, frequency, incontinence, hematuria, retention, other - Medication Medications: Active Medications Generic Name Dose Route Start Last Admin Trade Name Freq PRN Reason Stop Dose Admin Acetaminophen 650 mg 03/03/20 10:49 03/04/20 12:44 Acetaminophen 325 Mg Tab PO 650 mg Q6H PRN Administration Headache/Fever Or Mild Pain Aspirin 81 mg 03/04/20 09:00 03/06/20 08:41 Aspirin Chewable 81 Mg Tab PO 81 mg DAILY GARRETT Administration Atorvastatin Calcium 20 mg 03/04/20 21:00 03/05/20 21:17 Atorvastatin Calcium 20 Mg Tab PO 20 mg HS GARRETT Administration Levothyroxine Sodium 25 mcg 03/05/20 06:00 03/06/20 06:17 Levothyroxine Sodium 25 Mcg Tab PO 25 mcg SuMoWeFrSa@0600 GARRETT Administration Polyethylene Glycol 17 gm 03/04/20 09:00 03/06/20 08:41 Polyethylene Glycol 3350 17 Gm Packet PO 17 gm DAILY GARRETT Administration Thyroid 15 mg 03/06/20 06:00 03/06/20 06:17 Thyroid 30 Mg Tab PO 15 mg 0600 GARRETT Administration - Exam Heart: negative: RRR, no murmur, no gallops, no rubs, normal peripheral pulses, irregular, diminshed peripheral pulses, murmur present, II/IV, III/IV Respiratory: negative: CTAB, no wheezes, no rales, no ronchi, normal chest expansion, no tachypnea, normal percussion, rales, rhonchi, tachypneic, wheezes Gastrointestinal: negative: soft, non-tender, non-distended, normal bowel sounds, no palpable masses, no hepatomegaly, no splenomegaly, no bruit, no guarding, no rigidity, tender to palpation, distended, diminished bowl sounds, voluntary guarding Extremities: 1+ LE edema Skin - other findings: blisters noted to right upper back Hosp A/P (1) Abnormal stress test Status: Acute (2) Afib Code(s): I48.91 - UNSPECIFIED ATRIAL FIBRILLATION Status: Acute (3) Status post aorto-coronary artery bypass graft Code(s): Z95.1 - PRESENCE OF AORTOCORONARY BYPASS GRAFT Status: Acute (4) Hypothyroidism Code(s): E03.9 - HYPOTHYROIDISM, UNSPECIFIED Status: Chronic (5) Personal history of tobacco use Code(s): Z87.891 - PERSONAL HISTORY OF NICOTINE DEPENDENCE Status: Chronic - Plan pt on amio will continue. pt will be gotten up today with PT. still has a tovar.
[2020-03-06] MEDS ORDERED: valACYclovir 500 MG TAB PO SCH (14:45)
--- NOTE | 2020-03-06 14:45 | PDOC.HOSPP ---
- Subjective Encounter Date: 03/05/20 Encounter Time: 14:00 Subjective: pt up in bed no complains - Objective Vital Signs & Weight: Vital Signs (12 hours) Temp Pulse Pulse BP BP Pulse Ox Pulse Ox 03/06/20 13:20 73 68 170/83 H 141/81 H 92 L 03/06/20 11:00 98.9 F 03/06/20 09:20 68 70 140/92 H 155/73 H 100 03/06/20 07:24 98 03/06/20 07:00 99.5 F 03/06/20 04:00 99.4 F Pulse Ox 03/06/20 13:20 94 L 03/06/20 11:00 03/06/20 09:20 100 03/06/20 07:24 03/06/20 07:00 03/06/20 04:00 Weight Weight 169 lb 8.568 oz Most Recent Monitor Data Heart Rate from ECG 67 NIBP 124/99 NIBP BP-Mean 107 Respiration from ECG 18 SpO2 89 I&O: 03/05/20 03/06/20 03/07/20 06:59 06:59 06:59 Intake Total 2411.4 1146 480 Output Total 1469 1258 695 Balance 942.4 -112 -215 Result Diagrams: 03/04/20 04:00 03/04/20 04:00 Hospitalist ROS - Review of Systems Cardiovascular: denies: chest pain, palpitations, orthopnea, paroxysmal noc. dyspnea, edema, light headedness, other Gastrointestinal: denies: nausea, vomiting, abdominal pain, diarrhea, constipation, melena, hematochezia, other Genitourinary: denies: dysuria, frequency, incontinence, hematuria, retention, other - Medication Medications: Active Medications Generic Name Dose Route Start Last Admin Trade Name Freq PRN Reason Stop Dose Admin Acetaminophen 650 mg 03/03/20 10:49 03/04/20 12:44 Acetaminophen 325 Mg Tab PO 650 mg Q6H PRN Administration Headache/Fever Or Mild Pain Aspirin 81 mg 03/04/20 09:00 03/06/20 08:41 Aspirin Chewable 81 Mg Tab PO 81 mg DAILY GARRETT Administration Atorvastatin Calcium 20 mg 03/04/20 21:00 03/05/20 21:17 Atorvastatin Calcium 20 Mg Tab PO 20 mg HS GARRETT Administration Levothyroxine Sodium 25 mcg 03/05/20 06:00 03/06/20 06:17 Levothyroxine Sodium 25 Mcg Tab PO 25 mcg SuMoWeFrSa@0600 GARRETT Administration Polyethylene Glycol 17 gm 03/04/20 09:00 03/06/20 08:41 Polyethylene Glycol 3350 17 Gm Packet PO 17 gm DAILY GARRETT Administration Thyroid 15 mg 03/06/20 06:00 03/06/20 06:17 Thyroid 30 Mg Tab PO 15 mg 0600 GARRETT Administration - Exam Heart: negative: RRR, no murmur, no gallops, no rubs, normal peripheral pulses, irregular, diminshed peripheral pulses, murmur present, II/IV, III/IV Respiratory: negative: CTAB, no wheezes, no rales, no ronchi, normal chest expansion, no tachypnea, normal percussion, rales, rhonchi, tachypneic, wheezes Gastrointestinal: negative: soft, non-tender, non-distended, normal bowel sounds, no palpable masses, no hepatomegaly, no splenomegaly, no bruit, no guarding, no rigidity, tender to palpation, distended, diminished bowl sounds, voluntary guarding Extremities: 1+ LE edema Skin - other findings: Blisters noted to left upper back Hosp A/P (1) Abnormal stress test Status: Acute (2) Chest pain Code(s): R07.9 - CHEST PAIN, UNSPECIFIED Status: Acute (3) Status post aorto-coronary artery bypass graft Code(s): Z95.1 - PRESENCE OF AORTOCORONARY BYPASS GRAFT Status: Acute (4) Hypothyroidism Code(s): E03.9 - HYPOTHYROIDISM, UNSPECIFIED Status: Chronic (5) Afib Code(s): I48.91 - UNSPECIFIED ATRIAL FIBRILLATION Status: Acute - Plan pt on amio will continue. pt will be gotten up today with PT. still has a tovar. 03/06 patient has some blisters noted to left upper back. We will start patient on valacyclovir. Patient has been getting up ambulating.
--- NOTE | 2020-03-06 16:07 | CON ---
DATE OF CONSULTATION: 03/06/2020 REASON FOR CONSULTATION: I am visiting Mr. Gaytan at our [facility] ICU for electrophysiology consultation. His problems are: 1. Paroxysmal atrial fibrillation, possible flutter with rapid ventricular rates. 2. 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 3. Status post coronary artery bypass grafting surgery x3 vessels with ERNANDEZ to LAD, SVG to distal right coronary artery and mid PDA on 03/02/2020. a. Left heart catheterization prior to the procedure shows normal LVEF, severe proximal LAD disease, and severe RCA disease. ALLERGIES: NONE NOTED. MEDICATIONS: At home, included levothyroxine. SUBJECTIVE: Mr. Gaytan is here with unstable angina from his current admission. He underwent left heart catheterization with findings above and then subsequently bypass grafting surgery was performed. While on the monitoring postoperatively, he started developing rapid ventricular rates with atrial fibrillation. IV amiodarone was initiated and the atrial fibrillation converted back to normal rhythm without difficulty. Subsequently, more rapid rates were also seen, and on occasion, the conversion was followed by sinus pauses up to 4 seconds conversion pauses were seen. These episodes were not symptomatic. He denies dizziness or loss of consciousness. Some palpitation sensations are present. He has noted prior episodes of rapid heart beats, concluded atrial fibrillation, but has not had these symptoms treated for that in the past. They were paroxysmal. No PND, orthopnea, or lower extremity edema. No fever or chills. He has chronic cough. REVIEW OF SYSTEMS: Rest of 12-point review of systems otherwise unremarkable. PAST HISTORY: As above, he has history of hypothyroidism. SOCIAL HISTORY: The patient lives with his . Drinks alcohol twice a month, socially only. Quit tobacco use about 10 years ago. FAMILY HISTORY: Not contributory. OBJECTIVE DATA: VITAL SIGNS: Blood pressure 124/99, heart rate 67, respirations 18, and the patient is afebrile. GENERAL: This is an alert and oriented man, in no apparent distress. NECK: Supple. Jugular veins not distended. CHEST: Coarse without crackles. HEART: Sounds are regular to rate and rhythm. No murmur or gallop. Midsternal scar is well healed. ABDOMEN: Benign. Bowel sounds positive. EXTREMITIES: Lower extremities without edema, clubbing, or cyanosis. Pulses are adequate. NEUROLOGIC: The patient is nonfocal. MUSCULOSKELETAL: Without joint swelling or deformity. SKIN: Without rash. DATABASE: The EKG is reviewed. Initial EKG on 03/01/2020 reveals sinus rhythm, rate of 75 beats per minute, no significant ST changes. QTc is 448 milliseconds. Subsequent EKGs reveal frequent PACs, but still sinus rhythm on the . Sinus rhythm persist on telemetry records, but on the , started developing frequent PACs and runs of atrial arrhythmias. Some are fairly irregular and atrial flutter is suspected. Bradycardia is noted even during awake hours subsequent to the atrial arrhythmia termination. Up to 4-second pause is seen, the episodes could be rapid with cycle length up to 320 milliseconds. PVCs are difficult to visualize, one-to-one conducted atrial flutter versus an SVT. He is a remote possibility on differential diagnosis list. Another EKG on 03/04, though it does demonstrate atrial fibrillation. LABORATORY DATA: White blood cell count is 10.7, hemoglobin 11.4, and platelet count is 118. Sodium 137, potassium 4.1, BUN is 19, and creatinine 1.08. The total T3 is 45, TSH is 1.18, and T4 is 6. Chest x-ray from 03/04/2020 shows no interval change. ASSESSMENT AND PLAN: 1. Mr. Gaytan is a pleasant 79-year-old man with prior history of hypothyroidism, smoking, and also palpitations, possible atrial fibrillation. He has not been receiving treatment for this. The episodes were paroxysmal. He now underwent emergent bypass surgery due to unstable angina. Post bypass, he developed atrial arrhythmias, which is not unusual. He is rate therapy rapid required IV amiodarone for suppression. Also these paroxysms frequently recurred and terminated, somewhat terminations followed by pauses up to 4 seconds. He does not have severe bradycardia so far. These pauses seem to be immediately following the tachyarrhythmia episodes. Could represent latent sinus node disease, worsened by negative chronotropic agents. On the other hand, so far is not symptomatic, I would continue monitoring him and is receiving amiodarone taper. 2. Atrial arrhythmias, atrial fibrillation, possible atrial flutter, it was present, cannot completely rule out supraventricular tachycardia, although atrial flutter more likely in this situation. For now, IV then p.o. amiodarone taper is reasonable to continue, which likely will suppress these episodes, already has a trend of improvement. Should the amiodarone causes severe bradycardia, pacemaker implantation could be a consideration at this point. We will continue monitor him for this. 3. CHADS-VASc score is elevated due to his age and coronary vascular disease at 3, but for now the atrial fibrillation episodes are short. Oral anticoagulation should be held until complete surgical recovery. Should the atrial fibrillation persist, anticoagulation may need to be considered. I will follow with you. Thank you again for allowing me to participate in the care of this patient. Job ID: [id number] LAMBERT
[2020-03-06] MEDS: Acetaminophen 325 MG TAB PO PRN (17:08)
[2020-03-06] MEDS: Guaifenesin DM 100-10/5 ML UDCUP PO PRN (17:33)
[2020-03-06] MEDS: Atorvastatin Calcium 20 MG TAB PO SCH (21:40)
[2020-03-06] MEDS: Amiodarone 200 MG TAB PO SCH (21:40)
[2020-03-06] MEDS: valACYclovir 500 MG TAB PO SCH (21:41)
[2020-03-07] MEDS ORDERED: Levothyroxine Sodium 25 MCG TAB PO SCH (06:00)
[2020-03-07] MEDS: valACYclovir 500 MG TAB PO SCH ×3 (06:31→21:09)
[2020-03-07] MEDS: Thyroid 30 MG TAB PO SCH (06:31)
--- NOTE | 2020-03-07 07:39 | PRG ---
DATE OF SERVICE: 03/07/2020 The patient is postoperative day #4 following coronary artery bypass grafting. He has had couple of transient episodes of short episodes of atrial fibrillation with RVR, but these were both self-limited. He has had no long pauses again. He ambulated well yesterday but did have some nausea. His laboratory values are stable. He has no complaints this morning except for perhaps some early shingles on his back, which was picked up yesterday. His lungs are clear. His chest incision looks good and he has no peripheral edema. We will transfer him out to the telemetry unit today and increase his activity and hope to consider discharge tomorrow if he has a good day. Job ID: [id number]
--- NOTE | 2020-03-07 08:19 | PDOC.HOSPP ---
- Subjective Encounter Date: 03/07/20 Encounter Time: 11:50 Subjective: Patient with one run of asymptomatic Afib after exercise yesterday, resolved. Lowest HR in 50s while sleeping overnight. No pauses. Patient doing well with PT and feels up to going home soon. - Objective Vital Signs & Weight: Vital Signs (12 hours) Temp 03/07/20 04:00 99.6 F 03/07/20 00:00 99.1 F Weight Weight 177 lb 0.499 oz Most Recent Monitor Data Heart Rate from ECG 65 NIBP 133/72 NIBP BP-Mean 92 Respiration from ECG 23 SpO2 97 I&O: 03/06/20 03/07/20 03/08/20 06:59 06:59 06:59 Intake Total 1146 859.2 Output Total 1258 1362 Balance -112 -502.8 Result Diagrams: 03/04/20 04:00 03/04/20 04:00 Hospitalist ROS - Review of Systems Constitutional: denies: fever, chills Respiratory: denies: cough, shortness of breath Cardiovascular: denies: chest pain, palpitations Gastrointestinal: denies: nausea, vomiting, abdominal pain - Medication Medications: Active Medications Generic Name Dose Route Start Last Admin Trade Name Freq PRN Reason Stop Dose Admin Acetaminophen 650 mg 03/03/20 10:49 03/06/20 17:08 Acetaminophen 325 Mg Tab PO 650 mg Q6H PRN Administration Headache/Fever Or Mild Pain Amiodarone HCl 400 mg 03/06/20 21:00 03/06/20 21:40 Amiodarone 200 Mg Tab PO 400 mg BID GARRETT Administration Aspirin 81 mg 03/04/20 09:00 03/06/20 08:41 Aspirin Chewable 81 Mg Tab PO 81 mg DAILY GARRETT Administration Atorvastatin Calcium 20 mg 03/04/20 21:00 03/06/20 21:40 Atorvastatin Calcium 20 Mg Tab PO 20 mg HS GARRETT Administration Guaifenesin/Dextromethorphan 15 ml 03/04/20 13:25 03/06/20 17:33 Guaifenesin Dm 100-10/5 Ml Udcup PO 15 ml Q4H PRN Administration Cough Levothyroxine Sodium 25 mcg 03/05/20 06:00 03/06/20 06:17 Levothyroxine Sodium 25 Mcg Tab PO 25 mcg SuMoWeFrSa@0600 GARRETT Administration Levothyroxine Sodium 12.5 mcg 03/07/20 06:00 03/07/20 06:32 Levothyroxine Sodium 25 Mcg Tab PO 12.5 mcg TTH@0600 GARRETT Administration Magnesium Hydroxide 30 ml 03/04/20 13:25 03/06/20 19:11 Milk Of Magnesia 30 Ml Udcup PO 30 ml Q12H PRN Administration Constipation Ondansetron HCl 4 mg 03/03/20 10:49 03/06/20 17:09 Ondansetron Pf 4 Mg/2 Ml Vial IVP 4 mg Q6H PRN Administration Nausea/Vomiting Polyethylene Glycol 17 gm 03/04/20 09:00 03/06/20 08:41 Polyethylene Glycol 3350 17 Gm Packet PO 17 gm DAILY GARRETT Administration Thyroid 15 mg 03/06/20 06:00 03/07/20 06:31 Thyroid 30 Mg Tab PO 15 mg 0600 GARRETT Administration Valacyclovir HCl 1,000 mg 03/06/20 22:00 03/07/20 06:31 Valacyclovir 500 Mg Tab PO 1,000 mg Q8HR GARRETT Administration - Exam General Appearance: NAD, awake alert ENT: moist mucosa Heart: RRR, no murmur, no gallops, no rubs Heart - other findings: sternotomy incision intact without erythema or drainage Respiratory: CTAB, no wheezes, no rales, no ronchi Gastrointestinal: soft, non-tender, non-distended, normal bowel sounds Psychiatric: normal affect, normal behavior, A&O x 3 Hosp A/P - Plan (1) Abnormal stress test Status: Acute (2) Chest pain Code(s): R07.9 - CHEST PAIN, UNSPECIFIED Status: Acute (3) Status post aorto-coronary artery bypass graft Code(s): Z95.1 - PRESENCE OF AORTOCORONARY BYPASS GRAFT Status: Acute (4) Hypothyroidism Code(s): E03.9 - HYPOTHYROIDISM, UNSPECIFIED Status: Chronic (5) Afib Code(s): I48.91 - UNSPECIFIED ATRIAL FIBRILLATION Status: Acute - Plan 03/07 Patient stable on amiodarone, EP consultation recommends Amiodarone taper, no pacemaker needed at this point, PT. Possible d/c in next 1-[address] surgery. 03/06 pt on amio will continue. pt will be gotten up today with PT. still has a tovar. patient has some blisters noted to left upper back. We will start patient on valacyclovir. Patient has been getting up ambulating.
[2020-03-07] MEDS: Furosemide 40 MG TAB PO SCH (08:33)
[2020-03-07] MEDS: Amiodarone 200 MG TAB PO SCH ×2 (08:33→20:22)
[2020-03-07] MEDS: Enoxaparin Sodium 40 MG/0.4 ML SYRINGE SC SCH (08:34)
[2020-03-07] MEDS: Tamsulosin HCl 0.4 MG CAP PO SCH (08:34)
[2020-03-07] MEDS: Finasteride 5 MG TAB PO SCH (08:34)
[2020-03-07] MEDS: Polyethylene Glycol 3350 17 GM Packet PO SCH (08:34)
[2020-03-07] MEDS: Potassium Chloride 10 MEQ TAB PO SCH (08:34)
[2020-03-07] MEDS: Aspirin Chewable 81 MG TAB PO SCH (08:34)
[2020-03-07] MEDS ORDERED: Nitroglycerin 0.4 MG TAB (25 Tab Bottle) SL PRN (09:42)
[2020-03-07] MEDS ORDERED: Mag-Al 1200 mg/1200 mg/30 ML UDCUP PO PRN (09:42)
[2020-03-07] MEDS ORDERED: HYDROcodone/Acetaminophen 5/325 mg Tablet PO PRN (09:42)
--- NOTE | 2020-03-07 16:00 | PDOC.EP ---
- Subjective Date: 03/07/20 Time: 08:00 Interval History: Feels fair, anticipating transfer to [facility] this AM. No arrhythmia concerns or palpitations. No stroke like events. - Review of Systems Constitutional: denies: chills, fever, malaise, sweats, weakness, other Respiratory: denies: cough, dry, hemoptysis, pleuritic pain, shortness of breath, SOB with excertion, sputum, wheezing Cardiology: reports: chest pain (post op), edema. denies: heart racing, light headedness, paroxysmal noc. dyspnea, palpitations Gastrointestinal: denies: abdominal pain, constipation, nausea, vomitting - Objective Allergies/Adverse Reactions: Allergies Allergy/AdvReac Type Severity Reaction Status Date / Time No Known Allergies Allergy Verified 03/02/20 00:23 Current Medications Acetaminophen (Acetaminophen 325 Mg Tab) 650 mg PO Q6H PRN PRN Reason: Headache/Fever Or Mild Pain Last Admin: 03/06/20 17:08 Dose: 650 mg Documented by: Hydrocodone Bitart/Acetaminophen (Hydrocodone/Acetaminophen 5/325 Mg Tablet) 1 tab PO Q4H PRN PRN Reason: Moderate Pain (4-6) Al Hydroxide/Mg Hydroxide (Mag-Al 1200 Mg/1200 Mg/30 Ml Udcup) 30 ml PO Q4H PRN PRN Reason: Indigestion Albuterol/Ipratropium (Ipratropium/Albuterol Sulfate 3 Ml Neb) 3 ml NEB [id number] PRN PRN Reason: SOB Amiodarone HCl (Amiodarone 200 Mg Tab) 400 mg PO BID [facility] Last Admin: 03/07/20 08:33 Dose: 400 mg Documented by: Aspirin (Aspirin Chewable 81 Mg Tab) 81 mg PO DAILY [facility] Last Admin: 03/07/20 08:34 Dose: 81 mg Documented by: Atorvastatin Calcium (Atorvastatin Calcium 20 Mg Tab) 20 mg PO HS [facility] Last Admin: 03/06/20 21:40 Dose: 20 mg Documented by: Bisacodyl (Bisacodyl 5 Mg Tab) 10 mg PO Q12H PRN PRN Reason: Constipation Bisacodyl (Bisacodyl 10 Mg Supp) 10 mg [place] Q12H PRN PRN Reason: Constipation Enoxaparin Sodium (Enoxaparin Sodium 40 Mg/0.4 Ml Syringe) 40 mg SC 0900 [facility] Last Admin: 03/07/20 08:34 Dose: 40 mg Documented by: Finasteride (Finasteride 5 Mg Tab) 5 mg PO DAILY [facility] Last Admin: 03/07/20 08:34 Dose: 5 mg Documented by: Furosemide (Furosemide 40 Mg Tab) 40 mg PO DAILY[facility] Last Admin: 03/07/20 08:33 Dose: 40 mg Documented by: Guaifenesin/Dextromethorphan (Guaifenesin Dm 100-10/5 Ml Udcup) 15 ml PO Q4H PRN PRN Reason: Cough Last Admin: 03/06/20 17:33 Dose: 15 ml Documented by: Levothyroxine Sodium (Levothyroxine Sodium 25 Mcg Tab) 25 mcg PO SuMoWeFrSa@0600 [facility] Last Admin: 03/06/20 06:17 Dose: 25 mcg Documented by: Levothyroxine Sodium (Levothyroxine Sodium 25 Mcg Tab) 12.5 mcg PO TTH@0600 [facility] Last Admin: 03/07/20 06:32 Dose: 12.5 mcg Documented by: Magnesium Hydroxide (Milk Of Magnesia 30 Ml Udcup) 30 ml PO Q12H PRN PRN Reason: Constipation Last Admin: 03/06/20 19:11 Dose: 30 ml Documented by: Mineral Oil (Mineral Oil Enema) 133 ml [place] DAILYPRN PRN PRN Reason: Constipation Nitroglycerin (Nitroglycerin 0.4 Mg Tab (25 Tab Bottle)) 0.4 mg SL Q5MIN PRN PRN Reason: Chest Pain Nitroglycerin (Nitroglycerin 0.4 Mg Tab (25 Tab Bottle)) 0.4 mg SL Q5MIN PRN PRN Reason: Chest Pain Ondansetron HCl (Ondansetron Pf 4 Mg/2 Ml Vial) 4 mg IVP Q6H PRN PRN Reason: Nausea/Vomiting Last Admin: 03/06/20 17:09 Dose: 4 mg Documented by: Polyethylene Glycol (Polyethylene Glycol 3350 17 Gm Packet) 17 gm PO DAILY [facility] Last Admin: 03/07/20 08:34 Dose: 17 gm Documented by: Potassium Chloride (Potassium Chloride 10 Meq Tab) 10 meq PO QAM-WM [facility] Last Admin: 03/07/20 08:34 Dose: 10 meq Documented by: Sodium Chloride (Flush - Normal Saline 10 Ml Syringe) 10 ml IVF PRN PRN PRN Reason: Saline Flush Tamsulosin HCl (Tamsulosin Hcl 0.4 Mg Cap) 0.4 mg PO DAILY [facility] Last Admin: 03/07/20 08:34 Dose: 0.4 mg Documented by: Thyroid (Thyroid 30 Mg Tab) 15 mg PO 0600 [facility] Last Admin: 03/07/20 06:31 Dose: 15 mg Documented by: Valacyclovir HCl (Valacyclovir 500 Mg Tab) 1,000 mg PO Q8HR [facility] Last Admin: 03/07/20 13:13 Dose: 1,000 mg Documented by: Vital Signs & Weight: Vital Signs Temp Pulse Pulse Pulse Resp BP BP 03/07/20 15:33 99.2 F 67 18 03/07/20 13:33 81 71 173/80 H 135/63 03/07/20 11:00 99.2 F 65 18 03/07/20 09:26 73 68 164/72 H 95/51 L 03/07/20 09:10 98.0 F 68 18 03/07/20 08:00 03/07/20 07:00 98.7 F 03/07/20 04:00 99.6 F BP Pulse Ox 03/07/20 15:33 114/62 95 03/07/20 13:33 03/07/20 11:00 121/58 L 94 L 03/07/20 09:26 03/07/20 09:10 134/81 95 03/07/20 08:00 97 03/07/20 07:00 03/07/20 04:00 Weight 177 lb 0.499 oz I/O: I/O 03/06/20 03/07/20 03/08/20 06:59 06:59 06:59 Intake Total 1146 859.2 290 Output Total 1258 1362 Balance -112 -502.8 290 - Quality Measures Condition: Atrial Fibrillation/Flutter (hx or current) - Physical Exam General: alert & oriented x3, appears well, no apparent distress, speech clear, affect appropriate HEENT: mucus membranes moist, normocephaly Neck: supple neck, midline trachea, no JVD/HJR, no masses, no bruit, no lymphadenopathy, no thromegaly Cardiology: regular rate and rhythm, no murmur, regular rate, regular rhythm, PMI nondisplaced Lungs: clear to auscultation, normal breath sounds, normal exam, no wheeze, rales, rhonchi, no wheezes, no rales, no rhonchi Neurology: cranial nerve 2-12 intact, grossly intact, motor function intact, sensory function intact, negative rhomberg, coordination normal, no lateralizing findings - Labs Result Diagrams: 03/04/20 04:00 03/04/20 04:00 - EKG Interpretation EKG Method: Telemetry EKG shows: Sinus rhythm - Assessment/Plan Assessment/Plan: 1. Paroxysmal atrial fibrillation, possible flutter with rapid ventricular rates. 2. 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 3. Status post coronary artery bypass grafting surgery x3 vessels with ERNANDEZ to LAD, SVG to distal right coronary artery and mid PDA on 03/02/2020. a. Left heart catheterization prior to the procedure shows normal LVEF, severe proximal LAD disease, and severe RCA disease. SR on monitor. Continue amiodarone loading/taper. Anticipate 2-3 months on ami odarone post CABG. If persisting AF seen despite amidoarone, OAC is indicated. Rapid narrow complex tachycardia is likely 1:1 atrial flutter vs AVNRT but has not recurred. No bradycardia or indication for PPM since yesterday.
--- NOTE | 2020-03-07 16:18 | PDOC.CPN ---
- Subjective Date: 03/07/20 Time: 16:17 Interval history: No new issues. His rhythm has remained stable without bradycardia or pauses. No more afib or atrial tach. No BM yet but passing gas. - Review of Systems General: denies: fever/chills, weight/appetite/sleep changes, night sweats, fatigue Respiratory: denies: cough, congestion, shortness of breath, exercise intolerance Cardiovascular: denies: chest pain, palpitation, edema, paroxysmal nocturnal dyspnea, orthopnea Gastrointestinal: denies: nausea, vomiting, diarrhea, constipation, abd pain, GI bleeding Musculoskeletal: reports: pain. denies: tenderness, stiffness, swelling, arthritis/arthralgias Neurological: denies: numbness, syncope, seizure, weakness - Objective Allergies/Adverse Reactions: Allergies Allergy/AdvReac Type Severity Reaction Status Date / Time No Known Allergies Allergy Verified 03/02/20 00:23 Visit Medications: Current Medications Acetaminophen (Acetaminophen 325 Mg Tab) 650 mg PO Q6H PRN PRN Reason: Headache/Fever Or Mild Pain Last Admin: 03/06/20 17:08 Dose: 650 mg Documented by: Hydrocodone Bitart/Acetaminophen (Hydrocodone/Acetaminophen 5/325 Mg Tablet) 1 tab PO Q4H PRN PRN Reason: Moderate Pain (4-6) Al Hydroxide/Mg Hydroxide (Mag-Al 1200 Mg/1200 Mg/30 Ml Udcup) 30 ml PO Q4H PRN PRN Reason: Indigestion Albuterol/Ipratropium (Ipratropium/Albuterol Sulfate 3 Ml Neb) 3 ml NEB U9AN-AY PRN PRN Reason: SOB Amiodarone HCl (Amiodarone 200 Mg Tab) 400 mg PO BID [facility] Last Admin: 03/07/20 08:33 Dose: 400 mg Documented by: Aspirin (Aspirin Chewable 81 Mg Tab) 81 mg PO DAILY [facility] Last Admin: 03/07/20 08:34 Dose: 81 mg Documented by: Bisacodyl (Bisacodyl 5 Mg Tab) 10 mg PO Q12H PRN PRN Reason: Constipation Bisacodyl (Bisacodyl 10 Mg Supp) 10 mg [place] Q12H PRN PRN Reason: Constipation Enoxaparin Sodium (Enoxaparin Sodium 40 Mg/0.4 Ml Syringe) 40 mg SC 0900 [facility] Last Admin: 03/07/20 08:34 Dose: 40 mg Documented by: Finasteride (Finasteride 5 Mg Tab) 5 mg PO DAILY [facility] Last Admin: 03/07/20 08:34 Dose: 5 mg Documented by: Furosemide (Furosemide 40 Mg Tab) 40 mg PO DAILY-AC [facility] Last Admin: 03/07/20 08:33 Dose: 40 mg Documented by: Guaifenesin/Dextromethorphan (Guaifenesin Dm 100-10/5 Ml Udcup) 15 ml PO Q4H PRN PRN Reason: Cough Last Admin: 03/06/20 17:33 Dose: 15 ml Documented by: Levothyroxine Sodium (Levothyroxine Sodium 25 Mcg Tab) 25 mcg PO SuMoWeFrSa@0600 [facility] Last Admin: 03/06/20 06:17 Dose: 25 mcg Documented by: Levothyroxine Sodium (Levothyroxine Sodium 25 Mcg Tab) 12.5 mcg PO TTH@0600 [facility] Last Admin: 03/07/20 06:32 Dose: 12.5 mcg Documented by: Magnesium Hydroxide (Milk Of Magnesia 30 Ml Udcup) 30 ml PO Q12H PRN PRN Reason: Constipation Last Admin: 03/06/20 19:11 Dose: 30 ml Documented by: Mineral Oil (Mineral Oil Enema) 133 ml [place] DAILYPRN PRN PRN Reason: Constipation Nitroglycerin (Nitroglycerin 0.4 Mg Tab (25 Tab Bottle)) 0.4 mg SL Q5MIN PRN PRN Reason: Chest Pain Nitroglycerin (Nitroglycerin 0.4 Mg Tab (25 Tab Bottle)) 0.4 mg SL Q5MIN PRN PRN Reason: Chest Pain Ondansetron HCl (Ondansetron Pf 4 Mg/2 Ml Vial) 4 mg IVP Q6H PRN PRN Reason: Nausea/Vomiting Last Admin: 03/06/20 17:09 Dose: 4 mg Documented by: Polyethylene Glycol (Polyethylene Glycol 3350 17 Gm Packet) 17 gm PO DAILY [facility] Last Admin: 03/07/20 08:34 Dose: 17 gm Documented by: Potassium Chloride (Potassium Chloride 10 Meq Tab) 10 meq PO QAM-WM [facility] Last Admin: 03/07/20 08:34 Dose: 10 meq Documented by: Sodium Chloride (Flush - Normal Saline 10 Ml Syringe) 10 ml IVF PRN PRN PRN Reason: Saline Flush Tamsulosin HCl (Tamsulosin Hcl 0.4 Mg Cap) 0.4 mg PO DAILY [facility] Last Admin: 03/07/20 08:34 Dose: 0.4 mg Documented by: Thyroid (Thyroid 30 Mg Tab) 15 mg PO 0600 [facility] Last Admin: 03/07/20 06:31 Dose: 15 mg Documented by: Valacyclovir HCl (Valacyclovir 500 Mg Tab) 1,000 mg PO Q8HR [facility] Last Admin: 03/07/20 13:13 Dose: 1,000 mg Documented by: Vital Signs & Weight: Vital Signs Temp Pulse Pulse Pulse Resp BP BP 03/07/20 15:33 99.2 F 67 18 03/07/20 13:33 81 71 173/80 H 135/63 03/07/20 11:00 99.2 F 65 18 03/07/20 09:26 73 68 164/72 H 95/51 L 03/07/20 09:10 98.0 F 68 18 03/07/20 08:00 03/07/20 07:00 98.7 F BP Pulse Ox 03/07/20 15:33 114/62 95 03/07/20 13:33 03/07/20 11:00 121/58 L 94 L 03/07/20 09:26 03/07/20 09:10 134/81 95 03/07/20 08:00 97 03/07/20 07:00 Weight 177 lb 0.499 oz - Physical Exam General: alert & oriented x3 HEENT: mucus membranes moist Neck: supple neck Cardiac: regular rate and rhythm Lungs: clear to auscultation Neuro: grossly intact Abdomen: active bowel sounds Extremities: no edema Skin: clear Musculoskeletal: no pain - Labs Result Diagrams: 03/04/20 04:00 03/04/20 04:00 Troponin/CKMB Troponin I 0.013 ng/mL (< 0.028) 03/01/20 20:11 - Telemetry Sinus rhythms and dysrhythmias: sinus rhythm - Assessment/Plan Assessment/Plan: 1. Unstable angina 2. Multivesse CAD 3. S/P CABG x 3 ERNANDEZ to LAD, SVG to RCA sequential to PDA. 4. Post op afib 5. Sinus pause before conversion to sinus. PLAN: - ASA for life. - Will stop statin as he has had cognitive dysfunction in the past with pravastatin. - BB and ACEI once BP allow. - Amiodarone PO load t 400 mg BID for 9 days then 200 mg dialy. - Will add very low dose ACEI. Hold off on BB for now due to bradycardia yesterday. - Home soon from cardiac perspective.
[2020-03-07] MEDS: Guaifenesin DM 100-10/5 ML UDCUP PO PRN (20:39)
[2020-03-08] MEDS: Levothyroxine Sodium 25 MCG TAB PO SCH (05:54)
[2020-03-08] MEDS: valACYclovir 500 MG TAB PO SCH ×2 (05:55→06:13)
[2020-03-08] MEDS: Thyroid 30 MG TAB PO SCH (05:55)
[2020-03-08 07:15] VITALS: BP 137/68; TEMP 99.5
[2020-03-08] MEDS: Acetaminophen 325 MG TAB PO PRN (07:16)
[2020-03-08] MEDS: Furosemide 40 MG TAB PO SCH (08:24)
[2020-03-08] MEDS: Potassium Chloride 10 MEQ TAB PO SCH (08:25)
[2020-03-08] MEDS: Aspirin Chewable 81 MG TAB PO SCH (08:25)
[2020-03-08] MEDS: Amiodarone 200 MG TAB PO SCH (08:25)
[2020-03-08] MEDS: Enoxaparin Sodium 40 MG/0.4 ML SYRINGE SC SCH (08:26)
[2020-03-08] MEDS: Finasteride 5 MG TAB PO SCH (08:26)
[2020-03-08] MEDS: Polyethylene Glycol 3350 17 GM Packet PO SCH (08:26)
[2020-03-08] MEDS: Tamsulosin HCl 0.4 MG CAP PO SCH (08:26)
[2020-03-08] MEDS ORDERED: Lisinopril 2.5 MG TAB PO SCH (09:00)
--- NOTE | 2020-03-08 12:56 | PDOC.EP ---
- Subjective Date: 03/08/20 Time: 11:30 Interval History: feels well. prepping to DC shortly. no complaints - Review of Systems Constitutional: denies: chills, fever, malaise, sweats, weakness, other Respiratory: denies: cough, dry, hemoptysis, pleuritic pain, shortness of breath, SOB with excertion, sputum, wheezing, other Cardiology: reports: chest pain (post op). denies: edema, heart racing, light headedness, orthopnea, paroxysmal noc. dyspnea, palpitations, passing out, pleuritic pain, pressure, swelling, other Gastrointestinal: denies: abdominal pain, constipation, diarrhea, hematochezia, melena, nausea, vomitting, other Musculoskeletal: denies: unstable gait, falls, neck pain, shoulder pain, arm pain, hand pain, leg pain, foot pain, other - Objective Allergies/Adverse Reactions: Allergies Allergy/AdvReac Type Severity Reaction Status Date / Time No Known Allergies Allergy Verified 03/02/20 00:23 Vital Signs & Weight: Vital Signs Temp Pulse Resp BP Pulse Ox 03/08/20 08:26 67 03/08/20 07:16 99.5 F 03/08/20 07:12 99.5 F 67 18 137/68 94 L 03/08/20 03:40 98.2 F 65 18 135/70 92 L Weight 177 lb 0.499 oz I/O: I/O 03/07/20 03/08/20 03/09/20 06:59 06:59 06:59 Intake Total 859.2 1010 Output Total 1362 Balance -502.8 1010 - Quality Measures Condition: Atrial Fibrillation/Flutter (hx or current) CV meds: Aspirin: Yes - Physical Exam General: alert & oriented x3, appears well, no apparent distress, speech clear, affect appropriate HEENT: mucus membranes moist, normocephaly Neck: supple neck, midline trachea, no JVD/HJR, no masses, no bruit, no lymphadenopathy, no thromegaly Cardiology: regular rate and rhythm, no murmur, regular rate, regular rhythm, PMI nondisplaced Lungs: clear to auscultation, normal breath sounds, normal exam, no wheeze, rales, rhonchi, no wheezes, no rales, no rhonchi Neurology: cranial nerve 2-12 intact, grossly intact, motor function intact, sensory function intact, negative rhomberg, coordination normal, no lateralizing findings - Chadsvasc Risk factors Hypertension: 1 Age >75: 2 Vascular disease: 1 Risk Score: 4 - Labs Result Diagrams: 03/04/20 04:00 03/04/20 04:00 - EKG Interpretation EKG Method: Telemetry EKG shows: Sinus rhythm - Assessment/Plan Assessment/Plan: 1. Paroxysmal atrial fibrillation, possible flutter with rapid ventricular rates. 2. 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 3. Status post coronary artery bypass grafting surgery x3 vessels with ERNANDEZ to LAD, SVG to distal right coronary artery and mid PDA on 03/02/2020. a. Left heart catheterization prior to the procedure shows normal LVEF, severe proximal LAD disease, and severe RCA disease. SR on monitor. Continue amiodarone loading/taper. Anticipate 2-3 months on amiodarone post CABG. If persisting AF seen despite amidoarone, OAC is indicated. Rapid narrow complex tachycardia is likely 1:1 atrial flutter vs AVNRT but has not recurred. No bradycardia or indication for PPM since yesterday. Rhythm stable. OK for DC by EP. Will see back in 6-8 weeks
--- NOTE | 2020-03-08 13:52 | DIS ---
DATE OF ADMISSION: 03/03/2020 DATE OF DISCHARGE: 03/08/2020 The patient was admitted to the hospital with symptoms of unstable angina and underwent cardiac catheterization, found to have severe two-vessel coronary artery disease and coronary artery bypass grafting was recommended. He underwent bypass graft as a sequential to the PDA and main right coronary artery as well as bypass graft to the LAD with his ERNANDEZ. Postoperative course was remarkable for an episode of atrial tachycardia and then several long pauses in his atrial rhythm. He was begun on amiodarone and this was altered to oral amiodarone and he had no recurrence of his pauses. He was seen by Dr. Sharma as well as by Dr. Holbrook in regard to this. He did develop some blisters on his back consistent with shingles which he has had before and he was treated for that. He will be discharged home on amiodarone 400 mg a day for one month. Due to symptoms of enlarged prostate prior to admission, he was started on Flomax and Proscar. He has also been placed on lisinopril and the Valtrex for his shingles. He is to take an aspirin a day. He was not placed on a statin due to statin intolerance, and he will have to be evaluated by Dr. Holbrook for Praluent as an outpatient. Job ID: [id number]
--- NOTE | 2020-03-08 22:08 | PDOC.DS.DS ---
Provider - Provider Date of Admission: 03/03/20 09:53 Date of Discharge: 03/08/20 Admitting Provider: Lashawn Guthrie MD Consultations: Cardiology, Other (Cardiovascular) Primary Care Physician: Christoph Dee MD Course - Hospital Course Hospital Course: Patient is a 79-year-old male with coronary artery disease and smoking in the past presented to the hospital with chest discomfort on 03/03. Patient recently had abnormal stress test as outpatient. He was monitored on the telemetry unit. Cardiology was consulted. He underwent cardiac catheterization on 03/02 that showed severe RCA disease, severe proximal LAD disease with normal left ventr icular ejection fraction. He was evaluated by cardiovascular surgery and underwent coronary artery bypass grafting x3 on 03/02. He was later transferred to telemetry unit. He was found to have paroxysmal atrial fibrillation with possible tachybradycardia syndrome. He was also evaluated by electrophysiology. He will continue amiodarone taper. He was also diagnosed with herpes zoster and was started on valacyclovir. Final diagnosis: Chest pain due to coronary artery disease Coronary artery disease s/p CABG this admission Paroxysmal atrial fibrillation Suspected tachybradycardia syndrome Herpes zoster Former smoker Hypothyroidism CKD stage II Hyperlipidemia with statin intolerance Thrombocytopeniaimproving Resuscitation Status: 03/01/20 15:54 Resuscitation Status Routine Co-Sign Provider: Resuscitation Status: FULL: Full Resuscitation - Labs Lab Results: 03/04/20 04:00 03/04/20 04:00 - Physical Exam Vitals: Weight Weight 177 lb 0.499 oz Most Recent Monitor Data Heart Rate from ECG 66 NIBP 111/61 NIBP BP-Mean 77 Respiration from ECG 23 SpO2 96 Physical Exam: The patient was seen and examined on the day of discharge. Plan - Discharge Medications Prescriptions: Amiodarone [Cordarone] 400 mg PO DAILY 30 Days #30 tab Tamsulosin HCl [Flomax] 0.4 mg PO DAILY 30 Days #30 cap Finasteride [Proscar] 5 mg PO DAILY 30 Days #30 tab valACYclovir [Valtrex] 1,000 mg PO DAILY 5 Days #5 tab Lisinopril [Zestril] 5 mg PO DAILY 30 Days #30 tab Home Medications: Medication Instructions Recorded Confirmed Type Levothyroxine Sodium [Synthroid] 25 mcg PO DAILY 03/02/20 03/02/20 History Amiodarone [Cordarone] 400 mg PO DAILY 30 Days #30 tab 03/08/20 Rx Aspirin Chewable [Aspirin Chewable 81 mg PO DAILY tab 03/08/20 Rx Tablet] Finasteride [Proscar] 5 mg PO DAILY 30 Days #30 tab 03/08/20 Rx Lisinopril [Zestril] 5 mg PO DAILY 30 Days #30 tab 03/08/20 Rx Tamsulosin HCl [Flomax] 0.4 mg PO DAILY 30 Days #30 cap 03/08/20 Rx valACYclovir [Valtrex] 1,000 mg PO DAILY 5 Days #5 tab 03/08/20 Rx Allergies: No Known Allergies Allergy (Verified 03/02/20 00:23) - Follow up Plan Referrals: [facility] [Outside] - 03/13/20 8:00 am (You have been scheduled for outpatient cardiac rehab on March 13, at 8:00am. Please bring your list of medications and any discharge information you received from the hospital. Please arrive 10 minutes early to be registered. [facility]. If you need directions or have any questions, please call [phone]. ) Jhoan Holbrook MD [Active] - 04/05/20 11:15 am (Please follow-up with Dr. Holbrook on 04/05/20 at 11:15 am.) Jhoan Friend MD [Active] - 03/22/20 1:00 pm (Please follow-up on 03/22/20 at 1:00 pm.) Christoph Dee MD [Primary Care Provider] - 03/15/20 1:40 pm (Please follow-up on 03/15/20 at 1:40 pm.) Disposition: HOME Quality - Care Measures CORE MEASURES:: N/A
--- NOTE | 2020-03-11 13:59 | EKG ---
Test Reason : CHEST PRESSURE Blood Pressure : / mmHG Vent. Rate : 065 BPM Atrial Rate : 065 BPM P-R Int : 160 ms QRS Dur : 094 ms QT Int : 398 ms P-R-T Axes : 042 -24 -13 degrees QTc Int : 413 ms Sinus rhythm with marked sinus arrhythmia Minimal voltage criteria for LVH, may be normal variant Nonspecific ST abnormality Abnormal ECG Confirmed by ARIELLA GAGE DO ([id number]), associate editor ISRAEL JIMÉNEZ ([id number]) on 03/11/2020 1:58:41 PM Referred By: Confirmed By:ARIELLA GAGE DO
--- NOTE | 2020-03-11 13:59 | EKG ---
Test Reason : Blood Pressure : / mmHG Vent. Rate : 075 BPM Atrial Rate : 075 BPM P-R Int : 142 ms QRS Dur : 100 ms QT Int : 402 ms P-R-T Axes : 051 -16 017 degrees QTc Int : 448 ms Normal sinus rhythm Possible Left atrial enlargement Nonspecific ST abnormality Abnormal ECG Confirmed by RAIELLA GAGE DO ([id number]), scientific editor ISRAEL JIMÉNEZ ([id number]) on 03/11/2020 1:58:39 PM Referred By: Confirmed By:ARIELLA GAGE DO
== END 2020-03-08 12:04 | disposition home or self-care (01) | DRG 234 ==
LOC: ERS 13:45 → ERHOLD 16:48 → 2NO 20:46 → CCU 03-03 07:09 → OBSVTOIN 03-03 09:53 → CCU 03-03 11:38 → 2NO 03-07 09:06
PROVIDERS: ADMIT Internal Medicine; ATTEND Internal Medicine
PROC: 4A023N7 Measurement of Cardiac Sampling and Pressure, Left Heart, Percutaneous Approach (ICD-10-PCS; principal; 2020-03-02)
PROC: 02100Z9 Bypass Coronary Artery, One Artery from Left Internal Mammary, Open Approach (ICD-10-PCS; 2020-03-02)
PROC: 021109W Bypass Coronary Artery, Two Arteries from Aorta with Autologous Venous Tissue, Open Approach (ICD-10-PCS; 2020-03-02)
PROC: 06BQ4ZZ Excision of Left Saphenous Vein, Percutaneous Endoscopic Approach (ICD-10-PCS; 2020-03-02)
PROC: B2151ZZ Fluoroscopy of Left Heart using Low Osmolar Contrast (ICD-10-PCS; 2020-03-02)
PROC: B2111ZZ Fluoroscopy of Multiple Coronary Arteries using Low Osmolar Contrast (ICD-10-PCS; 2020-03-02)
PROC: 5A1221Z Performance of Cardiac Output, Continuous (ICD-10-PCS; 2020-03-02)
DX: I25.110 Atherosclerotic heart disease of native coronary artery with unstable angina pectoris (principal); I48.92 Unspecified atrial flutter; Z20.822 Contact with and (suspected) exposure to COVID-19; I48.0 Paroxysmal atrial fibrillation; I49.5 Sick sinus syndrome; B02.9 Zoster without complications; E03.9 Hypothyroidism, unspecified; N18.2 Chronic kidney disease, stage 2 (mild); E78.5 Hyperlipidemia, unspecified; D69.6 Thrombocytopenia, unspecified; E78.00 Pure hypercholesterolemia, unspecified; R94.39 Abnormal result of other cardiovascular function study; Z79.890 Hormone replacement therapy; Z87.891 Personal history of nicotine dependence
CPT/HCPCS: 36415; 36416; 36430; 71045; 80048; 80053; 80061; 82947; 83735; 84436; 84443; 84480; 84484; 85025; 85610; 85730; 86850; 86900; 86901; 87635; 93005; 93010; 93458; 93798; 94760; 97139; 99152; G0378; J0282; J0360; J0690; J1100; J1642; J1644; J1650; J1815; J1885; J2001; J2150; J2250; J2405; J2440; J2704; J2720; J3010; J3370; J3475; J3480; J7030; J7070; P9045; Q0162; S0017; S0028; U0003

== ENCOUNTER 2020-08-07 09:54 | Emergency (ER) | payer MEDICARE, OTHER ==
[2020-08-07 10:59] LABS: #Eosinphils 0.2 thou/uL (0.0-0.7); #Monocytes 0.8 thou/uL (0.11-0.59); #Neutrophils 5.6 thou/uL (1.40-6.50); %Basophils 0.6 % (0.0-1.0); %Eosinophils 2.8 % (0.0-10.0); %Lymphocytes 13.2 % (21.0-51.0); %Monocytes 10.4 % (0.0-10.0); Hemoglobin 12.6 g/dL (14.0-18.0); Mean Corpuscular Hemoglobin 32.9 pg (27.0-31.0); Mean Corpuscular Volume 99.8 fL (78.0-98.0); Mean Platelet Volume 9.8 fL (7.4-10.4); Platelet Count 157 thou/uL (130-400); RBC Distribution Width 11.9 % (11.5-14.5); Red Blood Cell (RBC) Count 3.82 mill/uL (4.70-6.10); White Blood Cell (WBC) Count 7.7 thou/uL (4.8-10.8)
[2020-08-07 11:22] LABS: ALT (SGPT) 20 U/L (8-55); AST (SGOT) 24 U/L (5-34); Albumin 3.7 g/dL (3.4-4.8); Alkaline Phosphatase 55 U/L (40-110); Anion Gap 13 mmol/L (10-20); BUN (Urea Nitrogen) 21 mg/dL (8.4-25.7); Bilirubin, Total 1.3 mg/dL (0.2-1.2); Calc. Creatinine Clearance 0 mL/min (70-130); Calcium 8.9 mg/dL (7.8-10.44); Carbon Dioxide 24 mmol/L (23-31); Chloride 104 mmol/L (98-107); Globulin 2.8 g/dL (2.4-3.5); Glucose 91 mg/dL (83-110); Potassium 4.4 mmol/L (3.5-5.1); Protein, Total 6.5 g/dL (5.8-8.1); Sodium 137 mmol/L (136-145)
[2020-08-07 13:38] LABS: Bilirubin Negative (Negative); Blood, Urine Negative (Negative); Glucose, Urine (Dipstick) Negative (Negative); Ketone, Urine 15 mg/dL (Negative); Leukocyte Negative (Negative); Nitrite Negative (Negative); Protein, Urine (Dipstick) Negative (Neg-Trace); Urobilinogen 0.2 mg/dL (Less than 2)
[2020-08-07 13:39] LABS: Clarity Clear (Clear)
[2020-08-07 13:41] LABS: Bacteria/HPF None Seen HPF (None Seen); RBC/HPF 0-3 HPF (0-3); Squamous Epithelial None Seen HPF (0-3)
[2020-08-07] MEDS ORDERED: Iopamidol-370 76% 500 ML 1 ML ONE (13:46)
== END 2020-08-07 14:27 | disposition home or self-care (01) ==
LOC: ERS 09:54
DX: N17.9 Acute kidney failure, unspecified (principal); R19.7 Diarrhea, unspecified; E03.9 Hypothyroidism, unspecified; I10 Essential (primary) hypertension; Z87.891 Personal history of nicotine dependence; Z79.82 Long term (current) use of aspirin; Z79.01 Long term (current) use of anticoagulants; Z79.899 Other long term (current) drug therapy
CPT/HCPCS: 36415; 74177; 80053; 81003; 83690; 85025; Q9967

== ENCOUNTER 2020-10-11 06:06 | Day surgery (SDC) | payer MEDICARE, OTHER ==
[2020-10-10 11:31] VITALS: BMI 29.0
[2020-10-11] MEDS ORDERED: Levofloxacin 500 mg/D5W 100 ml Premix Bag ONE (06:23)
[2020-10-11] MEDS ORDERED: Famotidine/PF 20 mg/2ml Vial ONE (06:44)
[2020-10-11] MEDS ORDERED: PROPOFOL 40 ML ONE (06:44)
[2020-10-11] MEDS ORDERED: Phenylephrine 10 MG/ML VIAL ONE (06:44)
[2020-10-11] MEDS ORDERED: Fentanyl 100 MCG/2 ML VIAL ONE (06:44)
[2020-10-11] MEDS ORDERED: Metoclopramide HCl 10 MG/2 ML VIAL ONE (07:26)
[2020-10-11] MEDS ORDERED: Lidocaine 1% PF 5 ML VIAL ONE (07:26)
[2020-10-11] MEDS ORDERED: Ondansetron PF 4 MG/2 ML Vial ONE (07:26)
[2020-10-11] MEDS ORDERED: ePHEDrine 50 MG/ML VIAL ONE ×2 (07:26)
[2020-10-11] MEDS ORDERED: PROPOFOL 200 MG/20 ML VIAL ONE (07:26)
[2020-10-11] MEDS ORDERED: Bacitracin 1 PK ONE (08:18)
[2020-10-11] MEDS ORDERED: Phenazopyridine HCl 100 MG TAB ONE (08:46)
[2020-10-11] MEDS ORDERED: Oxybutynin 5 MG TAB ONE (08:46)
== END 2020-10-11 11:50 | disposition home or self-care (01) ==
LOC: SDC 06:06
PROVIDERS: ATTEND Urology
PROC: 0T9B30Z Drainage of Bladder with Drainage Device, Percutaneous Approach (ICD-10-PCS; principal; 2020-10-11)
PROC: 0T7D8DZ Dilation of Urethra with Intraluminal Device, Via Natural or Artificial Opening Endoscopic (ICD-10-PCS; 2020-10-11)
DX: N40.1 Benign prostatic hyperplasia with lower urinary tract symptoms (principal); R33.8 Other retention of urine; N13.8 Other obstructive and reflux uropathy; N32.3 Diverticulum of bladder; N32.89 Other specified disorders of bladder; I25.10 Atherosclerotic heart disease of native coronary artery without angina pectoris; I48.91 Unspecified atrial fibrillation; E06.3 Autoimmune thyroiditis; E78.5 Hyperlipidemia, unspecified; Z79.01 Long term (current) use of anticoagulants; Z79.82 Long term (current) use of aspirin; Z79.899 Other long term (current) drug therapy; Z95.1 Presence of aortocoronary bypass graft
CPT/HCPCS: 51102; C9740; J1956; J2370; J2405; J2704; J2765; J3010; J3490; L8699; S0028

== ENCOUNTER 2021-02-19 13:23 | Inpatient (IN) | payer MEDICARE, OTHER ==
[2021-02-19 13:51] LABS: #Eosinphils 0.1 thou/uL (0.0-0.7); #Lymphocytes 1.5 thou/uL (1.20-3.40); #Monocytes 0.5 thou/uL (0.11-0.59); #Neutrophils 4.2 thou/uL (1.40-6.50); %Basophils 0.1 % (0.0-1.0); %Lymphocytes 24.4 % (21.0-51.0); %Neutrophils 66.4 % (42.0-75.0); Hemoglobin 13.4 g/dL (14.0-18.0); Mean Corpuscular HGB CONC 34.1 g/dL (32.0-36.0); Mean Corpuscular Hemoglobin 33.4 pg (27.0-31.0); Mean Corpuscular Volume 98.1 fL (78.0-98.0); Platelet Count 301 thou/uL (130-400); RBC Distribution Width 11.3 % (11.5-14.5); Red Blood Cell (RBC) Count 4.02 mill/uL (4.70-6.10); White Blood Cell (WBC) Count 6.3 thou/uL (4.8-10.8)
[2021-02-19 14:11] LABS: ALT (SGPT) 27 U/L (8-55); AST (SGOT) 24 U/L (5-34); Albumin 3.7 g/dL (3.4-4.8); Alkaline Phosphatase 61 U/L (40-110); Anion Gap 12 mmol/L (10-20); BUN (Urea Nitrogen) 19 mg/dL (8.4-25.7); Bilirubin, Total 0.6 mg/dL (0.2-1.2); Calc. Creatinine Clearance 0 mL/min (70-130); Calcium 8.9 mg/dL (7.8-10.44); Carbon Dioxide 25 mmol/L (23-31); Chloride 106 mmol/L (98-107); Globulin 2.7 g/dL (2.4-3.5); Glucose 111 mg/dL (83-110); Protein, Total 6.4 g/dL (5.8-8.1); Sodium 139 mmol/L (136-145)
[2021-02-19 14:34] LABS: CK (CPK) 184 U/L (30-200); Lipase 83 U/L (8-78)
[2021-02-19] MEDS ORDERED: Ondansetron ODT 4 MG TAB SL PRN (15:45)
[2021-02-19] MEDS ORDERED: Ondansetron PF 4 MG/2 ML Vial IVP PRN (15:45)
[2021-02-19] MEDS ORDERED: Acetaminophen 325 MG TAB PO PRN (15:55)
[2021-02-19] MEDS ORDERED: Senokot S 8.6-50 MG TAB PO PRN (15:55)
[2021-02-19 17:25] LABS: Troponin I Less than 0.010 ng/mL (< 0.028)
[2021-02-19 20:06] LABS: SARS-CoV-2 NAA Rapid Test DETECTED (NotDetected)
[2021-02-19 20:25] LABS: Troponin I 0.016 ng/mL (< 0.028)
[2021-02-19] MEDS: Sodium Chloride 0.9% 1,000 ML IV SCH (23:01)
[2021-02-19] MEDS: Apixaban 5 MG TAB PO SCH (23:19)
[2021-02-20 04:50] LABS: #Basophils 0.1 thou/uL (0.0-0.2); #Eosinphils 0.2 thou/uL (0.0-0.7); #Lymphocytes 1.6 thou/uL (1.20-3.40); #Monocytes 0.6 thou/uL (0.11-0.59); #Neutrophils 3.2 thou/uL (1.40-6.50); %Basophils 0.9 % (0.0-1.0); %Eosinophils 2.9 % (0.0-10.0); %Lymphocytes 28.3 % (21.0-51.0); %Neutrophils 56.8 % (42.0-75.0); Hemoglobin 12.8 g/dL (14.0-18.0); Mean Corpuscular HGB CONC 34.1 g/dL (32.0-36.0); Mean Corpuscular Hemoglobin 33.6 pg (27.0-31.0); Mean Corpuscular Volume 98.7 fL (78.0-98.0); Mean Platelet Volume 8.1 fL (7.4-10.4); Platelet Count 269 thou/uL (130-400); RBC Distribution Width 11.4 % (11.5-14.5); Red Blood Cell (RBC) Count 3.81 mill/uL (4.70-6.10); White Blood Cell (WBC) Count 5.6 thou/uL (4.8-10.8)
[2021-02-20 05:15] LABS: Anion Gap 10 mmol/L (10-20); BUN (Urea Nitrogen) 19 mg/dL (8.4-25.7); Calc. Creatinine Clearance 0 mL/min (70-130); Calcium 8.5 mg/dL (7.8-10.44); Carbon Dioxide 24 mmol/L (23-31); Cardiac Risk 4.9 (Less than 4.5); Chloride 107 mmol/L (98-107); Cholesterol 192 mg/dl (< 200 Desired); Glucose 105 mg/dL (83-110); HDL Cholesterol 39 mg/dL (>60 Neg Risk); LDL Cholesterol, Calculated 140 mg/dL; Potassium 4.1 mmol/L (3.5-5.1); Sodium 137 mmol/L (136-145); Triglycerides 65 mg/dL (Less than 150)
[2021-02-20] MEDS ORDERED: Dronedarone HCl 400 MG TAB PO SCH ×2 (09:00→23:00)
[2021-02-20] MEDS: Sodium Chloride 0.9% 1,000 ML IV SCH (09:19)
[2021-02-20] MEDS: Apixaban 5 MG TAB PO SCH ×2 (09:19→22:04)
[2021-02-20 11:34] VITALS: BMI 25.8
[2021-02-20] MEDS ORDERED: Tamsulosin HCl 0.4 MG CAP PO SCH (23:00)
[2021-02-21] MEDS ORDERED: Tamsulosin HCl 0.4 MG CAP PO SCH (09:00)
[2021-02-21] MEDS ORDERED: Dronedarone HCl 400 MG TAB PO SCH (09:00)
[2021-02-21] MEDS: Apixaban 5 MG TAB PO SCH (09:37)
[2021-02-21 11:44] VITALS: BP 154/85; TEMP 98.2
== END 2021-02-21 13:20 | disposition home or self-care (01) | DRG 312 ==
LOC: ERS 13:23 → EEVIPCON 15:21 → ERHOLD 15:21 → 2NO 02-20 13:51 → OBSVTOIN 02-20 14:06
PROVIDERS: ADMIT Family Medicine; ATTEND Internal Medicine
DX: I95.1 Orthostatic hypotension (principal); I48.0 Paroxysmal atrial fibrillation; R29.6 Repeated falls; I10 Essential (primary) hypertension; E03.9 Hypothyroidism, unspecified; I25.10 Atherosclerotic heart disease of native coronary artery without angina pectoris; Z88.8 Allergy status to other drugs, medicaments and biological substances; Z79.01 Long term (current) use of anticoagulants; Z79.82 Long term (current) use of aspirin; Z79.899 Other long term (current) drug therapy; Z95.1 Presence of aortocoronary bypass graft; Z86.16 Personal history of COVID-19; Z87.891 Personal history of nicotine dependence
CPT/HCPCS: 36415; 70450; 71045; 80048; 80053; 80061; 82550; 83605; 83690; 83880; 84443; 84484; 85025; 85379; 87040; 93005; 93880; 94760; G0378; J7050; U0002

== ENCOUNTER 2021-03-12 10:46 | Outpatient (CLI) | payer MEDICARE, OTHER | END 2021-03-12 10:47 | disposition home or self-care (01) | LOC: BICULT 10:46 | PROVIDERS: ATTEND Urology | DX: N40.1 Benign prostatic hyperplasia with lower urinary tract symptoms (principal); N32.3 Diverticulum of bladder; R33.8 Other retention of urine | CPT/HCPCS: 76770 ==

== ENCOUNTER 2021-06-27 13:27 | Observation (INO) | payer MEDICARE, OTHER ==
[2021-06-27 14:11] LABS: #Eosinphils 0.1 thou/uL (0.0-0.7); #Lymphocytes 1.3 thou/uL (1.20-3.40); #Monocytes 0.4 thou/uL (0.11-0.59); #Neutrophils 3.7 thou/uL (1.40-6.50); %Basophils 0.4 % (0.0-1.0); %Eosinophils 1.3 % (0.0-10.0); %Lymphocytes 22.7 % (21.0-51.0); %Neutrophils 67.5 % (42.0-75.0); Mean Corpuscular HGB CONC 32.7 g/dL (32.0-36.0); Mean Platelet Volume 9.5 fL (7.4-10.4); Platelet Count 173 thou/uL (130-400); RBC Distribution Width 12.3 % (11.5-14.5); Red Blood Cell (RBC) Count 4.23 mill/uL (4.70-6.10); White Blood Cell (WBC) Count 5.5 thou/uL (4.8-10.8)
[2021-06-27 14:32] LABS: ALT (SGPT) 18 U/L (8-55); AST (SGOT) 22 U/L (5-34); Alkaline Phosphatase 54 U/L (40-110); Anion Gap 11 mmol/L (10-20); BUN (Urea Nitrogen) 22 mg/dL (8.4-25.7); Bilirubin, Total 0.9 mg/dL (0.2-1.2); Calc. Creatinine Clearance 0 mL/min (70-130); Calcium 8.9 mg/dL (7.8-10.44); Carbon Dioxide 22 mmol/L (23-31); Chloride 104 mmol/L (98-107); Globulin 2.8 g/dL (2.4-3.5); Glucose 101 mg/dL (83-110); Protein, Total 6.8 g/dL (5.8-8.1); Sodium 133 mmol/L (136-145)
[2021-06-27] MEDS ORDERED: Calcium Carbonate 500 MG ChewTAB PO PRN (18:40)
[2021-06-27] MEDS ORDERED: Senokot S 8.6-50 MG TAB PO PRN (18:40)
[2021-06-27] MEDS ORDERED: Acetaminophen 325 MG TAB PO PRN ×2 (18:40→21:15)
[2021-06-27] MEDS ORDERED: Electrolyte Replacement Protocol 1 EACH FS PRN (18:45)
[2021-06-27] MEDS ORDERED: hydrALAZINE 20 MG/ML VIAL SLOW IVP PRN (18:49)
[2021-06-27] MEDS ORDERED: Tamsulosin HCl 0.4 MG CAP PO SCH (21:00)
[2021-06-27] MEDS ORDERED: Sodium Chloride 0.9% 1,000 ML IV SCH (21:15)
[2021-06-27] MEDS ORDERED: Ondansetron PF 4 MG/2 ML Vial IVP PRN (21:15)
[2021-06-27] MEDS ORDERED: Ondansetron ODT 4 MG TAB SL PRN (21:15)
[2021-06-27] MEDS ORDERED: Dronedarone HCl 400 MG TAB PO SCH (21:45)
[2021-06-27] MEDS ORDERED: Aspirin 81 mg Enteric Coated Tablet PO SCH (21:45)
[2021-06-27] MEDS: Apixaban 5 MG TAB PO SCH (22:08)
[2021-06-27 22:56] LABS: Troponin I Less than 0.010 ng/mL (< 0.028)
[2021-06-27 23:58] VITALS: BMI 30.2
[2021-06-28 01:26] LABS: #Basophils 0.1 thou/uL (0.0-0.2); #Eosinphils 0.2 thou/uL (0.0-0.7); #Lymphocytes 1.5 thou/uL (1.20-3.40); #Monocytes 0.5 thou/uL (0.11-0.59); #Neutrophils 2.2 thou/uL (1.40-6.50); %Basophils 1.2 % (0.0-1.0); %Lymphocytes 33.1 % (21.0-51.0); %Neutrophils 49.7 % (42.0-75.0); Hemoglobin 13.9 g/dL (14.0-18.0); Mean Corpuscular HGB CONC 33.8 g/dL (32.0-36.0); Mean Corpuscular Hemoglobin 33.6 pg (27.0-31.0); Mean Corpuscular Volume 99.5 fL (78.0-98.0); Mean Platelet Volume 9.1 fL (7.4-10.4); Platelet Count 167 thou/uL (130-400); RBC Distribution Width 12.2 % (11.5-14.5); Red Blood Cell (RBC) Count 4.13 mill/uL (4.70-6.10); White Blood Cell (WBC) Count 4.5 thou/uL (4.8-10.8)
[2021-06-28 01:50] LABS: Anion Gap 12 mmol/L (10-20); BUN (Urea Nitrogen) 22 mg/dL (8.4-25.7); Calc. Creatinine Clearance 61 mL/min (70-130); Calcium 8.8 mg/dL (7.8-10.44); Carbon Dioxide 24 mmol/L (23-31); Chloride 105 mmol/L (98-107); Glucose 107 mg/dL (83-110); Magnesium 2.5 mg/dL (1.6-2.6); Phosphorus 3.3 mg/dL (2.3-4.7); Potassium 3.8 mmol/L (3.5-5.1); Sodium 137 mmol/L (136-145)
[2021-06-28 01:51] LABS: Troponin I 0.011 ng/mL (< 0.028)
[2021-06-28] MEDS: Apixaban 5 MG TAB PO SCH (08:37)
[2021-06-28] MEDS: Dronedarone HCl 400 MG TAB PO SCH ×2 (08:37→17:15)
[2021-06-28] MEDS ORDERED: Finasteride 5 MG TAB PO SCH (09:00)
[2021-06-28] MEDS ORDERED: Aspirin 81 mg Enteric Coated Tablet PO SCH (09:00)
[2021-06-28 12:22] LABS: SARS-CoV-2 PCR by NAA Not Detected (NotDetected)
[2021-06-28] MEDS ORDERED: Thyroid 30 MG TAB PO SCH (15:00)
[2021-06-28] MEDS ORDERED: Levothyroxine Sodium 25 MCG TAB PO SCH (15:00)
[2021-06-28 15:06] LABS: Free T4 (Free Thyroxine) 0.94 ng/dL (0.70-1.48); Thyroid Stimulating Hormone 2.4647 uIU/mL (0.35-4.94)
[2021-06-28 15:50] VITALS: BP 128/61; TEMP 98.1
[2021-06-29] MEDS ORDERED: Thyroid 30 MG TAB PO SCH (06:00)
[2021-06-29] MEDS ORDERED: Levothyroxine Sodium 25 MCG TAB PO SCH (06:00)
[2021-07-03] MEDS ORDERED: Levothyroxine Sodium 25 MCG TAB PO SCH (06:00)
== END 2021-06-28 17:58 | disposition home or self-care (01) ==
LOC: ERS 13:27 → 2SW 18:26
PROVIDERS: ADMIT Internal Medicine; ATTEND Internal Medicine
DX: R07.89 Other chest pain (principal); R09.89 Other specified symptoms and signs involving the circulatory and respiratory systems; I95.1 Orthostatic hypotension; I48.0 Paroxysmal atrial fibrillation; I25.10 Atherosclerotic heart disease of native coronary artery without angina pectoris; N40.0 Benign prostatic hyperplasia without lower urinary tract symptoms; E87.1 Hypo-osmolality and hyponatremia; I12.9 Hypertensive chronic kidney disease with stage 1 through stage 4 chronic kidney disease, or unspecified chronic kidney disease; N18.2 Chronic kidney disease, stage 2 (mild); N17.9 Acute kidney failure, unspecified; E03.9 Hypothyroidism, unspecified; Z87.891 Personal history of nicotine dependence; Z79.01 Long term (current) use of anticoagulants; Z79.82 Long term (current) use of aspirin; Z79.890 Hormone replacement therapy; Z79.899 Other long term (current) drug therapy; Z88.8 Allergy status to other drugs, medicaments and biological substances; Z95.1 Presence of aortocoronary bypass graft; Z20.822 Contact with and (suspected) exposure to COVID-19
CPT/HCPCS: 70450; 70491; 71045; 80048; 80053; 82550; 82607; 82746; 83605; 83735; 83880; 84100; 84439; 84443; 84481; 84484 ×3; 85025 ×2; 87040; 93005; 99285; U0003; U0005; 36415; G0378

== ENCOUNTER 2021-09-07 19:30 | Outpatient (CLI) | payer MEDICARE, OTHER | END 2021-09-07 19:31 | disposition home or self-care (01) | LOC: SLEEPLAB 19:30 | PROVIDERS: ATTEND Family Medicine | DX: G47.33 Obstructive sleep apnea (adult) (pediatric) (principal); I25.10 Atherosclerotic heart disease of native coronary artery without angina pectoris; I48.91 Unspecified atrial fibrillation; R06.83 Snoring; G47.10 Hypersomnia, unspecified; G47.00 Insomnia, unspecified; I10 Essential (primary) hypertension | CPT/HCPCS: 95811 ==

== ENCOUNTER 2022-09-19 21:18 | Emergency (ER) | payer MEDICARE, OTHER ==
[2022-09-19 22:12] LABS: #Eosinphils 0.2 thou/uL (0.0-0.7); #Monocytes 0.5 thou/uL (0.11-0.59); #Neutrophils 2.5 thou/uL (1.40-6.50); %Basophils 0.6 % (0.0-1.0); %Eosinophils 4.1 % (0.0-10.0); %Lymphocytes 33.6 % (21.0-51.0); %Monocytes 9.6 % (0.0-10.0); %Neutrophils 51.5 % (42.0-75.0); Hemoglobin 13.2 g/dL (14.0-18.0); Mean Corpuscular HGB CONC 34.3 g/dL (32.0-36.0); Mean Corpuscular Hemoglobin 33.4 pg (27.0-31.0); Mean Corpuscular Volume 97.5 fl (78.0-98.0); Mean Platelet Volume 11.7 fL (7.4-10.4); Platelet Count 147 10x3/uL (130-400); RBC Distribution Width 12.4 % (11.5-14.5); Red Blood Cell (RBC) Count 3.95 mill/uL (4.70-6.10); White Blood Cell (WBC) Count 4.9 10x3/uL (4.8-10.8)
[2022-09-19 22:34] LABS: Acetaminophen Less than 10 mcg/mL (10.0-30.0); Alcohol 198.8 mg/dL (Less than 10); Salicylate Less than 8.0 mg/dL (15.0-30.0)
[2022-09-19 22:35] LABS: ALT (SGPT) 21 U/L (8-55); AST (SGOT) 22 U/L (5-34); Alkaline Phosphatase 53 U/L (40-110); Anion Gap 13 mmol/L (10-20); BUN (Urea Nitrogen) 15 mg/dL (8.4-25.7); Bilirubin, Total 0.5 mg/dL (0.2-1.2); Calc. Creatinine Clearance 0 mL/min (70-130); Calcium 8.5 mg/dL (7.8-10.44); Carbon Dioxide 22 mmol/L (23-31); Chloride 106 mmol/L (98-107); Estimated GFR 70; Globulin 2.3 g/dL (2.4-3.5); Glucose 90 mg/dL (83-110); Potassium 3.9 mmol/L (3.5-5.1); Protein, Total 6.3 g/dL (5.8-8.1); Sodium 137 mmol/L (136-145)
== END 2022-09-19 22:35 | disposition home or self-care (01) ==
LOC: ERS 21:18
DX: F10.129 Alcohol abuse with intoxication, unspecified (principal); I10 Essential (primary) hypertension; E03.9 Hypothyroidism, unspecified; E78.5 Hyperlipidemia, unspecified; I48.91 Unspecified atrial fibrillation; W18.30XA Fall on same level, unspecified, initial encounter; Y90.6 Blood alcohol level of 120-199 mg/100 ml; Z87.891 Personal history of nicotine dependence
CPT/HCPCS: 36415; 70450; 72125; 80053; 80307; 84484; 85025; 93005

== ENCOUNTER → 2022-09-23 | Day surgery (SDC) | payer MEDICARE, OTHER ==
[2022-09-20 14:26] VITALS: BMI 29.7
[~2022-09-23] MED LIST: Glycopyrrolate 0.2 MG/ML 5 ML SYRINGE ONE; PROPOFOL 200 MG/20 ML VIAL ONE
== END | disposition home or self-care (01) ==
LOC: SDC 06:16
PROVIDERS: ATTEND Internal Medicine Cardiovascular Disease
DX: I48.0 Paroxysmal atrial fibrillation (principal); I12.9 Hypertensive chronic kidney disease with stage 1 through stage 4 chronic kidney disease, or unspecified chronic kidney disease; N18.2 Chronic kidney disease, stage 2 (mild); E03.9 Hypothyroidism, unspecified; G47.33 Obstructive sleep apnea (adult) (pediatric); E78.5 Hyperlipidemia, unspecified; Z79.899 Other long term (current) drug therapy; Z79.01 Long term (current) use of anticoagulants; Z79.890 Hormone replacement therapy; Z87.891 Personal history of nicotine dependence; Z88.8 Allergy status to other drugs, medicaments and biological substances; Z90.89 Acquired absence of other organs; Z95.5 Presence of coronary angioplasty implant and graft
CPT/HCPCS: 93312; J2704

== ENCOUNTER 2022-10-07 06:11 | Observation (INO) | payer MEDICARE, OTHER ==
[2022-10-03 15:20] VITALS: BMI 29.7
[2022-10-07] MEDS ORDERED: fentaNYL 50 mcg/mL 1 mL Vial ONE (07:14)
[2022-10-07] MEDS ORDERED: Heparin 10,000 UNITS/ 10 ML VIAL ONE ×2 (07:14→09:25)
[2022-10-07] MEDS ORDERED: Midazolam HCl 2 mg/2 ml Vial ONE (07:14)
[2022-10-07] MEDS ORDERED: Lidocaine 1% (PF) 30 ML VIAL ONE (07:15)
[2022-10-07] MEDS ORDERED: Nitroglycerin 50 MG/250 ML BOT 0 ML ONE (07:15)
[2022-10-07 07:29] LABS: #Eosinphils 0.2 thou/uL (0.0-0.7); #Monocytes 0.4 thou/uL (0.11-0.59); #Neutrophils 2.4 thou/uL (1.40-6.50); %Basophils 0.7 % (0.0-1.0); %Eosinophils 4.3 % (0.0-10.0); %Lymphocytes 27.3 % (21.0-51.0); %Monocytes 9.7 % (0.0-10.0); %Neutrophils 57.8 % (42.0-75.0); Hematocrit 40.7 % (42.0-52.0); Hemoglobin 13.8 g/dL (14.0-18.0); Mean Corpuscular HGB CONC 33.9 g/dL (32.0-36.0); Mean Corpuscular Hemoglobin 33.3 pg (27.0-31.0); Mean Corpuscular Volume 98.3 fl (78.0-98.0); Mean Platelet Volume 11.7 fL (7.4-10.4); Platelet Count 165 10x3/uL (130-400); RBC Distribution Width 12.5 % (11.5-14.5); Red Blood Cell (RBC) Count 4.14 mill/uL (4.70-6.10); White Blood Cell (WBC) Count 4.2 10x3/uL (4.8-10.8)
[2022-10-07 07:51] LABS: ALT (SGPT) 28 U/L (8-55); AST (SGOT) 29 U/L (5-34); Albumin 3.9 g/dL (3.4-4.8); Alkaline Phosphatase 60 U/L (40-110); Anion Gap 12 mmol/L (10-20); BUN (Urea Nitrogen) 19 mg/dL (8.4-25.7); Bilirubin, Total 0.5 mg/dL (0.2-1.2); Calc. Creatinine Clearance 57 mL/min (70-130); Calcium 8.7 mg/dL (7.8-10.44); Carbon Dioxide 21 mmol/L (23-31); Cardiac Risk 4.5 (Less than 4.5); Chloride 108 mmol/L (98-107); Cholesterol 244 mg/dl (< 200 Desired); Estimated GFR 60; Globulin 2.9 g/dL (2.4-3.5); Glucose 95 mg/dL (83-110); HDL Cholesterol 54 mg/dL (>60 Neg Risk); LDL Cholesterol, Calculated 175 mg/dL; Potassium 4.4 mmol/L (3.5-5.1); Protein, Total 6.8 g/dL (5.8-8.1); Sodium 137 mmol/L (136-145); Triglycerides 77 mg/dL (Less than 150)
[2022-10-07 07:58] LABS: PTT 24.5 sec (22.9-36.1)
[2022-10-07] MEDS ORDERED: Adenosine 6 MG/2 ML VIAL ONE (09:10)
[2022-10-07] MEDS ORDERED: Verapamil 5 MG/2 ML VIAL ONE (09:10)
[2022-10-07] MEDS ORDERED: Iopamidol 370 76% 100 ML VIAL ONE (09:30)
[2022-10-07] MEDS ORDERED: TICAGRELOR 90 MG TABLET ONE (09:34)
[2022-10-07] MEDS ORDERED: hydrALAZINE 20 MG/ML VIAL ONE (14:16)
[2022-10-07] MEDS: Dronedarone HCl 400 MG TAB PO SCH (17:37)
[2022-10-07] MEDS: Sodium Chloride 0.9% 1,000 ML IV SCH (17:52)
[2022-10-07] MEDS ORDERED: Acetaminophen 325 MG TAB PO PRN (18:52)
[2022-10-07] MEDS ORDERED: Polyethylene Glycol 3350 17 GM Packet PO PRN (18:52)
[2022-10-07] MEDS ORDERED: Montelukast Sodium 10 mg Tablet PO SCH (21:00)
[2022-10-07] MEDS ORDERED: Aspirin Chewable 81 MG TAB PO SCH (21:00)
[2022-10-07] MEDS ORDERED: Lidocaine 4% Patch TD SCH (21:45)
[2022-10-08] MEDS: Sodium Chloride 0.9% 1,000 ML IV SCH (04:13)
[2022-10-08] MEDS ORDERED: Levothyroxine Sodium 25 MCG TAB PO SCH (06:00)
[2022-10-08] MEDS: Dronedarone HCl 400 MG TAB PO SCH (08:22)
[2022-10-08] MEDS ORDERED: Clopidogrel Bisulfate 75 MG TAB PO SCH (09:00)
[2022-10-08] MEDS ORDERED: Loratadine 10 MG TAB PO SCH (09:00)
[2022-10-08] MEDS ORDERED: Thyroid 30 MG TAB PO SCH (09:00)
[2022-10-08] MEDS ORDERED: Losartan 25 MG TAB PO SCH (09:00)
[2022-10-08] MEDS ORDERED: Transdermal Patch Removal TOP SCH (10:00)
[2022-10-08 11:44] VITALS: BP 176/94; TEMP 98
[2022-10-09] MEDS ORDERED: Levothyroxine Sodium 25 MCG TAB PO SCH (06:00)
== END 2022-10-08 14:45 | disposition home or self-care (01) ==
LOC: SDC 06:11 → 2NO 15:59
PROVIDERS: ADMIT Internal Medicine Cardiovascular Disease; ATTEND Internal Medicine Cardiovascular Disease
PROC: 4A023N7 Measurement of Cardiac Sampling and Pressure, Left Heart, Percutaneous Approach (ICD-10-PCS; principal; 2022-10-07)
PROC: B210YZZ Fluoroscopy of Single Coronary Artery using Other Contrast (ICD-10-PCS; 2022-10-07)
DX: R07.89 Other chest pain (principal); E03.9 Hypothyroidism, unspecified; G47.30 Sleep apnea, unspecified; E78.5 Hyperlipidemia, unspecified; I48.0 Paroxysmal atrial fibrillation; R00.0 Tachycardia, unspecified; I95.1 Orthostatic hypotension; I12.9 Hypertensive chronic kidney disease with stage 1 through stage 4 chronic kidney disease, or unspecified chronic kidney disease; Z90.89 Acquired absence of other organs; Z87.891 Personal history of nicotine dependence; Z95.1 Presence of aortocoronary bypass graft; Z79.899 Other long term (current) drug therapy
CPT/HCPCS: 80053; 80061; 82962; 85025; 85347 ×2; 85610; 85730; 93005 ×2; 93459; C1725; C1769 ×2; C1874; C1887; C9600; J0360; J3010; 36416; 92928; 92937; 93010; 99152; 99153; C9604; J0153; J1644; J2001; J2250; J7050; Q9967

== ENCOUNTER 2022-10-10 21:15 | Inpatient (IN) | payer MEDICARE, OTHER ==
[2022-10-10 22:30] LABS: #Monocytes 0.7 thou/uL (0.11-0.59); #Neutrophils 5.3 thou/uL (1.40-6.50); %Basophils 0.3 % (0.0-1.0); %Eosinophils 0.4 % (0.0-10.0); %Lymphocytes 10.1 % (21.0-51.0); %Monocytes 10.9 % (0.0-10.0); %Neutrophils 77.9 % (42.0-75.0); Hematocrit 38.6 % (42.0-52.0); Hemoglobin 13.3 g/dL (14.0-18.0); Mean Corpuscular HGB CONC 34.5 g/dL (32.0-36.0); Mean Corpuscular Hemoglobin 33.4 pg (27.0-31.0); Mean Platelet Volume 12.3 fL (7.4-10.4); Platelet Count 146 10x3/uL (130-400); RBC Distribution Width 12.4 % (11.5-14.5); Red Blood Cell (RBC) Count 3.98 mill/uL (4.70-6.10); White Blood Cell (WBC) Count 6.8 10x3/uL (4.8-10.8)
[2022-10-10] MEDS ORDERED: Piperacillin/Tazobactam 4.5 GM VIAL ONE (22:39)
[2022-10-10 22:45] LABS: Bacteria/HPF None Seen HPF (None Seen); Bilirubin Negative (Negative); Blood, Urine Negative (Negative); CAUTI Indications for Culture Fever or rigors; Clarity Clear (Clear); Glucose, Urine (Dipstick) Normal (Negative); Ketone, Urine Negative (Negative); Leukocyte Negative Leu/uL (Negative); Nitrite Negative (Negative); Protein, Urine (Dipstick) 10 mg/dL (Neg-Trace); RBC/HPF 0-3 HPF (0-3); Specific Gravity, Urine 1.022 (1.002-1.036); Squamous Epithelial None Seen HPF (0-3); Urobilinogen Normal mg/dL (Less than 2); WBC/HPF 0-3 HPF (0-3)
[2022-10-10 22:46] LABS: Urine Culture Reflex No No
[2022-10-10 22:56] LABS: Troponin I 0.029 ng/mL (< 0.028)
[2022-10-10 23:15] LABS: ALT (SGPT) 27 U/L (8-55); AST (SGOT) 36 U/L (5-34); Alkaline Phosphatase 63 U/L (40-110); Anion Gap 17 mmol/L (10-20); BUN (Urea Nitrogen) 18 mg/dL (8.4-25.7); Bilirubin, Total 0.5 mg/dL (0.2-1.2); Calc. Creatinine Clearance 0 mL/min (70-130); Calcium 8.8 mg/dL (7.8-10.44); Carbon Dioxide 20 mmol/L (23-31); Chloride 101 mmol/L (98-107); Estimated GFR 67; Glucose 104 mg/dL (83-110); Potassium 4.2 mmol/L (3.5-5.1); Sodium 134 mmol/L (136-145)
[2022-10-10] MEDS ORDERED: Vancomycin 1 GM/200 ML (FROZEN) BAG ONE (23:53)
[2022-10-10] MEDS ORDERED: Aspirin Chewable 81 MG TAB ONE (23:55)
[2022-10-11 00:43] LABS: SARS-CoV-2 NAA Rapid Test DETECTED (NotDetected)
[2022-10-11 01:36] LABS: Troponin I 0.035 ng/mL (< 0.028)
[2022-10-11 02:14] LABS: INR-International Normal Ratio 1.2; PTT 28.8 sec (22.9-36.1); Prothrombin Time 15.6 sec (12.0-14.7)
[2022-10-11 02:17] LABS: D-Dimer Test 0.82 *mcg/mL (0.27-0.43)
[2022-10-11] MEDS ORDERED: Albuterol 200 PUFF (6.7GM INHALER) INH PRN (03:01)
[2022-10-11] MEDS ORDERED: HYDROcodone/Acetaminophen 5/325 mg Tablet PO PRN (03:01)
[2022-10-11] MEDS ORDERED: Benzonatate 100 MG CAP PO PRN (03:01)
[2022-10-11] MEDS ORDERED: Acetaminophen 325 MG TAB PO PRN ×2 (03:01)
[2022-10-11] MEDS ORDERED: Acetaminophen 650 MG Suppository PR PRN (03:01)
[2022-10-11] MEDS ORDERED: REMDESIVIR 200 MG in Sodium Chloride 0.9% 250 ML 210 ML IV SCH (03:15)
[2022-10-11] MEDS ORDERED: Dexamethasone 10 MG/ML VIAL SLOW IVP SCH (03:15)
[2022-10-11 03:21] VITALS: BMI 31.8
[2022-10-11] MEDS ORDERED: Dexamethasone 10 MG/ML VIAL ONE (03:28)
[2022-10-11 04:47] LABS: #Monocytes 0.5 thou/uL (0.11-0.59); #Neutrophils 4.2 thou/uL (1.40-6.50); %Basophils 0.5 % (0.0-1.0); %Eosinophils 0.4 % (0.0-10.0); %Lymphocytes 13.1 % (21.0-51.0); %Monocytes 9.1 % (0.0-10.0); %Neutrophils 76.5 % (42.0-75.0); Hematocrit 37.2 % (42.0-52.0); Hemoglobin 12.7 g/dL (14.0-18.0); Mean Corpuscular HGB CONC 34.1 g/dL (32.0-36.0); Mean Corpuscular Hemoglobin 33.2 pg (27.0-31.0); Mean Corpuscular Volume 97.1 fl (78.0-98.0); Mean Platelet Volume 12.1 fL (7.4-10.4); Platelet Count 129 10x3/uL (130-400); RBC Distribution Width 12.5 % (11.5-14.5); Red Blood Cell (RBC) Count 3.83 mill/uL (4.70-6.10); White Blood Cell (WBC) Count 5.5 10x3/uL (4.8-10.8)
[2022-10-11 05:16] LABS: Anion Gap 12 mmol/L (10-20); BUN (Urea Nitrogen) 15 mg/dL (8.4-25.7); Calc. Creatinine Clearance 83 mL/min (70-130); Calcium 8.1 mg/dL (7.8-10.44); Carbon Dioxide 20 mmol/L (23-31); Chloride 104 mmol/L (98-107); Estimated GFR 85; Glucose 107 mg/dL (83-110); Magnesium 1.9 mg/dL (1.6-2.6); Potassium 3.6 mmol/L (3.5-5.1); Sodium 132 mmol/L (136-145)
[2022-10-11 07:32] LABS: Troponin I 0.023 ng/mL (< 0.028)
[2022-10-11] MEDS ORDERED: Iopamidol-370 76% 500 ML MDV (1 ML CHARGE) ONE (11:02)
[2022-10-11] MEDS: Dexamethasone 10 MG/ML VIAL SLOW IVP SCH (13:14)
[2022-10-11] MEDS ORDERED: Losartan 25 MG TAB PO SCH (18:00)
[2022-10-11] MEDS ORDERED: Guaifenesin DM 100-10/5 ML UDCUP PO PRN (18:05)
[2022-10-11] MEDS: Aspirin Chewable 81 MG TAB PO SCH (21:24)
[2022-10-11] MEDS: Dronedarone HCl 400 MG TAB PO SCH (21:25)
[2022-10-11] MEDS: Docusate 100 MG CAP PO SCH (21:25)
[2022-10-12 04:16] LABS: #Monocytes 0.5 thou/uL (0.11-0.59); #Neutrophils 5.2 thou/uL (1.40-6.50); %Monocytes 8.2 % (0.0-10.0); %Neutrophils 82.3 % (42.0-75.0); Hematocrit 36.8 % (42.0-52.0); Hemoglobin 12.6 g/dL (14.0-18.0); Mean Corpuscular HGB CONC 34.2 g/dL (32.0-36.0); Mean Corpuscular Hemoglobin 33.3 pg (27.0-31.0); Mean Corpuscular Volume 97.4 fl (78.0-98.0); Mean Platelet Volume 12.6 fL (7.4-10.4); Platelet Count 141 10x3/uL (130-400); RBC Distribution Width 12.4 % (11.5-14.5); Red Blood Cell (RBC) Count 3.78 mill/uL (4.70-6.10); White Blood Cell (WBC) Count 6.3 10x3/uL (4.8-10.8)
[2022-10-12 04:42] LABS: Anion Gap 14 mmol/L (10-20); BUN (Urea Nitrogen) 17 mg/dL (8.4-25.7); Calc. Creatinine Clearance 79 mL/min (70-130); Calcium 8.6 mg/dL (7.8-10.44); Carbon Dioxide 21 mmol/L (23-31); Chloride 104 mmol/L (98-107); Estimated GFR 81; Glucose 127 mg/dL (83-110); Potassium 3.9 mmol/L (3.5-5.1); Sodium 135 mmol/L (136-145)
[2022-10-12] MEDS: Levothyroxine Sodium 25 MCG TAB PO SCH (05:23)
[2022-10-12] MEDS: Albuterol 200 PUFF (6.7GM INHALER) INH SCH ×4 (09:14→13:21)
[2022-10-12] MEDS: Losartan 25 MG TAB PO SCH ×2 (09:15→20:16)
[2022-10-12] MEDS: Docusate 100 MG CAP PO SCH ×2 (09:15→20:16)
[2022-10-12] MEDS: Clopidogrel Bisulfate 75 MG TAB PO SCH (09:16)
[2022-10-12] MEDS: Dronedarone HCl 400 MG TAB PO SCH ×2 (09:16→20:17)
[2022-10-12] MEDS: Dexamethasone 10 MG/ML VIAL SLOW IVP SCH (09:16)
[2022-10-12] MEDS: Thyroid 30 MG TAB PO SCH (11:20)
[2022-10-12] MEDS: REMDESIVIR 100 MG in Sodium Chloride 0.9% 250 ML 230 ML IV SCH (11:20)
[2022-10-12] MEDS: Aspirin Chewable 81 MG TAB PO SCH (20:16)
[2022-10-13] MEDS: Levothyroxine Sodium 25 MCG TAB PO SCH (06:04)
[2022-10-13] MEDS: Thyroid 30 MG TAB PO SCH (09:24)
[2022-10-13] MEDS: Losartan 25 MG TAB PO SCH (09:24)
[2022-10-13] MEDS: Dronedarone HCl 400 MG TAB PO SCH (09:24)
[2022-10-13] MEDS: Clopidogrel Bisulfate 75 MG TAB PO SCH (09:24)
[2022-10-13] MEDS: Dexamethasone 10 MG/ML VIAL SLOW IVP SCH (09:25)
[2022-10-13] MEDS: REMDESIVIR 100 MG in Sodium Chloride 0.9% 250 ML 230 ML IV SCH (09:25)
[2022-10-13] MEDS: Albuterol 200 PUFF (6.7GM INHALER) INH SCH (09:25)
[2022-10-13] MEDS: Docusate 100 MG CAP PO SCH (09:26)
[2022-10-13 10:23] VITALS: BP 168/87; TEMP 98.7
[2022-10-15] MEDS ORDERED: Levothyroxine Sodium 25 MCG TAB PO SCH (06:00)
== END 2022-10-13 12:00 | disposition home or self-care (01) | DRG 179 ==
LOC: ERS 21:15 → ERHOLD 10-11 02:45 → 2NO 10-11 09:47 → OBSVTOIN 10-11 18:13
PROVIDERS: ADMIT Student in an Organized Health Care Education/Training Program; ATTEND Internal Medicine
DX: U07.1 COVID-19 (principal); I48.0 Paroxysmal atrial fibrillation; I25.10 Atherosclerotic heart disease of native coronary artery without angina pectoris; Z95.1 Presence of aortocoronary bypass graft; Z95.5 Presence of coronary angioplasty implant and graft; E03.9 Hypothyroidism, unspecified; I10 Essential (primary) hypertension; Z90.89 Acquired absence of other organs; Z98.890 Other specified postprocedural states; Z88.8 Allergy status to other drugs, medicaments and biological substances; Z79.899 Other long term (current) drug therapy; E78.5 Hyperlipidemia, unspecified
CPT/HCPCS: 36415; 71045; 71275; 80048; 80053; 81001; 83605; 83735; 83880; 84484; 85025; 85379; 85610; 85730; 87040; 93005; 93010; 96365; 96367; 96372; J0248; J1100; J1650; J2543; J3370-JW; J7050; Q9967

== ENCOUNTER 2022-12-06 07:46 | Outpatient (CLI) | payer MEDICARE, OTHER | END 2022-12-06 07:47 | disposition home or self-care (01) | LOC: CT 07:46 | PROVIDERS: ATTEND Family Medicine | DX: M25.551 Pain in right hip (principal); M16.11 Unilateral primary osteoarthritis, right hip ==